=== PATIENT | female | born 1955 | race Caucasian/White ===

== ENCOUNTER 2020-09-11 20:50 | Emergency (ER) | payer MEDICARE, BC, SELFPAY ==
[2020-09-11 21:00] VITALS: BP 151/83; PULSE 97; RESP 18; TEMP 37.1; O2SAT 90; BMI 28.8
--- NOTE | 2020-09-11 21:17 | XRR_ITS ---
PROCEDURE INFORMATION: Exam: XR Chest, 1 View Exam date and time: 09/11/2020 10:34 PM Age: 65 years old Clinical indication: Cough and shortness of breath; Additional info: Short of breath, covid possible TECHNIQUE: Imaging protocol: XR of the chest Views: 1 view. COMPARISON: No relevant prior studies available. FINDINGS: Lungs: Mild patchy airspace opacities (atelectasis and/or consolidation) at bilateral lung bases, more prominent on the left. Mild pulmonary edema. Pleural space: No visible pneumothorax or pleural effusion. Heart/Mediastinum: Heart size within normal limits. Bones/joints: No emergent findings identified. XR/XR chest 1V portable [id number] IMPRESSION: 1. Mild patchy airspace opacities (atelectasis and/or consolidation) at bilateral lung bases, more prominent on the left. 2. Mild pulmonary edema.
--- NOTE | 2020-09-11 21:55 | ED_ITS ---
HPI - COVID General: Chief Complaint: COVID symptoms Stated Complaint: cough/sob Time Seen by Provider: 09/11/20 21:46 Source: patient Mode of arrival: ambulatory Limitations: no limitations Triage information: Has fever, cough or shortness of breath . No known COVID + exposure last 14 days History of Present Illness: HPI Narrative: Alycia is a very nice 65-year-old female who comes in complaining of malaise, muscle aches, fatigue, cough, shortn ess of breath and other generalized flulike symptoms for the past 5 days. She states that she gets short of breath when she exerts herself. She denies any chest pain. She has had a low-grade fever up to 99.8. Patient states that she is not believed to have been exposed to Covid but it is possible. She thought this started after she was outside and got wet while going camping. She has nausea but no vomiting. She denies any diarrhea. She denies any history of lung problems. COVID 19 common symptoms: positive fever(s), chills, non-productive cough, dyspnea, fatigue, body aches and nausea; negative productive cough, headache(s), throat pain, vomiting or diarrhea COVID 19 other sytmptoms: negative chest pain or confusion COVID Results: SARS-CoV-2 Antigen (Rapid) Positive (Negative) H 09/11/20 21:34 09/11/20 Review of Systems Const: Reports: fever(s), chills, body aches, fatigue and malaise Eyes: Denies: change in vision, blurry vision, photophobia, eye discomfort, eye discharge, eye redness or yellow eyes ENMT: Denies: throat pain, odynophagia, hoarseness, swelling of lips/tongue, ear or mastoid pain, ear discharge, change in hearing or nasal discharge Card: Denies: chest pain, palpitations, irregular heart rhythm, edema, light headedness, syncope, pre-syncope, dyspnea on exertion or orthopnea Resp: Reports: dyspnea and non-productive cough; Denies: productive cough, wheezing, hemoptysis or chest congestion GI: Reports: nausea; Denies: abdominal pain, vomiting, hematemesis, coffee ground emesis, heartburn, diarrhea, constipation, GI cramping, hematochezia or melena : Denies: flank pain, dysuria, urinary frequency, urinary urgency or hematuria Musc: Denies: neck pain, back pain, extremity pain, extremity swelling, joint pain, joint swelling, joint redness, joint warmth or joint stiffness Skin/Breast: Denies: rash, pruritus, erythema, skin pain or skin tenderness Neuro: Denies: headache(s), numbness in extremities, weakness in extremities, sensory changes, lack of coordination, difficulty walking, dizziness, vertigo, confusion, Slurred speech present or seizure-like activity Joon/Lymph: Denies: easy bruising, easy bleeding, petechiae, purpura or enlarged lymph nodes All/Imm: Denies: urticaria, throat swelling, tongue swelling, facial swelling or acute wheezing PFSH ED PFSH: Medical History DM type 2 (diabetes mellitus, type 2) Hypertension Physical Exam Const: COMMON NORMALS: no acute distress, patient oriented x3, no limitations and alert GENERAL APPEARANCE: cooperative HENMT: COMMON NORMALS: normocephalic, atraumatic, external ears normal, EAC's normal and Normal external nose present HEAD & SCALP: normal to inspection, normocephalic and atraumatic FACE & SINUS: normal facial exam and face symmetric NOSE: Normal external nose present and Normal nares present EXTERNAL EAR: Yes external ears normal EXTERNAL AUDITORY CANAL: EAC's normal MOUTH: Normal oral and palatal mucosa present, lip normal and tongue normal Eye: COMMON NORMALS: Equal, round and reactive pupils present and conjunctivae normal GENERAL EYE: appearance normal, both eyes and all related structures ALIGNMENT: Yes alignment normal PERIORBITAL: periorbital findings normal EYELID: eyelids normal CONJUNCTIVA: Yes conjunctivae normal SCLERA: sclerae normal PUPIL: Yes Equal, round and reactive pupils present Neck/C-Spine: COMMON NORMALS: full ROM, no lymphadenopathy, supple, no meningeal signs and no JVD GENERAL: Yes normal visual inspection and Yes trachea midline Chest: COMMONS NORMALS: normal inspection of the chest and normal palpation of entire chest wall Resp: COMMON NORMALS: normal respiratory effort, No retractions, No use of accessory muscles and clear to auscultation bilaterally EFFORT & INSPECTION: Yes able to speak in complete sentences and Yes symmetric chest movement AUSCULTATION: clear to auscultation bilaterally, no crackles, no rales, no rhonchi and wheezes Cardio: COMMON NORMALS: no JVD, regular rate, regular rhythm, S1 normal heart sound present and S2 normal heart sound present RATE: regular rate RHYTHM: regular rhythm HEART SOUNDS: S1 normal heart sound present, S2 normal heart sound present, no click, no gallops, no murmurs and no rubs GI: COMMON NORMALS: Soft to palpation and No hepatosplenomegaly present PALPATION: Yes Soft to palpation, No Tenderness to palpation present (GI), No Guarding due to palpation present (GI), No Rigid due to palpation, Yes No hepatosplenomegaly present, No Hernia present, No Palpable mass present and No Pulsatile mass present : COMMON NORMALS: Yes no CVA tenderness BLADDER/KIDNEY EXAM: Yes no CVA tenderness EXTERNAL FEMALE EXAM: No Hernia present Back/Pelvis: COMMON NORMALS: no CVA tenderness, thoracic and lumbar spine normal to inspection, no thoracic nor lumbar tenderness and thoraco-lumbar ROM normal Extremity: COMMON NORMALS: normal to inspection, full ROM, capillary refill normal, no joint enlargement, no clubbing, cyanosis or edema and no calf tenderness Neuro: COMMON NORMALS: patient oriented x3, CN's II-XII intact bilaterally, moves all extremities, no focal motor deficits and no sensory deficits noted SENSORIUM/ORIENTATION: Yes alert MENINGEAL SIGNS: Yes no meningeal signs SPEECH: speech normal Psych: COMMON NORMALS: mental status grossly normal, Normal thought process present, cooperative, normal affect, speech normal and activity/motor behavior normal SPEECH: Yes normal speech THOUGHT PROCESS: Normal thought process present Skin: COMMON NORMALS: no rashes or lesions noted, turgor normal, no jaundice, no petechiae and no mottling GENERAL SKIN EXAM: no rashes or lesions noted and turgor normal Course Vital Signs: Vital signs: Vital Signs Temperature 98.7 F 09/11/20 21:00 Pulse Rate 72 09/12/20 03:00 Respiratory Rate 17 09/12/20 03:00 Blood Pressure 145/80 09/12/20 03:00 Pulse Oximetry 93 09/12/20 03:18 MDM - COVID MDM Narrative Medical decision making narrative: Alycia is a nice 65-year-old female who comes in with Covid symptoms. She is Covid positive. She is only slightly hypoxic occasionally dropping down to a pulse ox of 89% on room air. I offered her admission with steroids and rib Dems of year but she declines. She wants to go home. I will arrange for her to have outpatient oxygen before going home. She understands and knows that she can return if her symptoms change or worsen but at this time she states she is feeling good and would like to be discharged. Lab Data Attestation: I reviewed the patient's lab results. Result diagrams: 09/11/20 21:34 09/11/20 21:34 Labs: Lab Results 09/11/20 09/11/20 09/11/20 Range/Units 21:34 21:34 21:34 WBC 4.7 (4.0-10.0) 10^3/uL RBC 4.06 L (4.1-5.3) 10^6/uL Hgb 12.3 (11.5-15.3) g/dL Hct 39.0 (37.0-47.0) % MCV 96.1 (81-99) fL MCH 30.3 (28.0-34.0) pg MCHC 31.5 (30.0-36.0) g/dL RDW 12.4 (12.1-15.1) % Plt Count 187 (130-400) 10^3/cmm MPV 11.0 H (7.4-10.4) fL Neut % (Auto) 68.3 % Lymph % (Auto) 24.9 % [place] % (Auto) 5.3 % Eos % (Auto) 0.9 % Baso % (Auto) 0.2 % Neut # (Auto) 3.20 (1.8-7.7) 10^3/uL Lymph # (Auto) 1.2 (0.8-4.8) 10^3/uL [place] # (Auto) 0.3 (0.2-0.9) 10^3/uL Eos # (Auto) 0.0 (0.0-0.8) 10^3/uL Baso # (Auto) 0.0 (0.0-0.1) 10^3/uL Nucleated RBC % (auto) 0 % Nucleated RBCs # 0.0 /100WBC PT (12.1-14.9) SECONDS INR (0.8-1.2) D-Dimer (0-0.59) ug/mIFEU Specimen Type Sample Site ABG pH (7.35-7.45) ABG pCO2 (35-45) mmHg ABG pO2 (80.0-100.0) mmHg ABG HCO3 (22-26) mmol/L ABG Base Excess (-2.0-2.0) mmol/L Carlos Manuel Test Hematocrit (37-47) % O2 Delivery Device O2 Liters/Min % Production Staff Worker ID Sodium 139 (136-145) mmol/L Potassium 4.1 (3.5-5.1) mmol/L Chloride 101 (98-107) mmol/L Carbon Dioxide 28 (22-29) mmol/L Anion Gap 14.1 (5-19) BUN 13 (8-23) mg/dL Creatinine 0.8 (0.5-0.9) mg/dL GFR Calculation 72.0 L (90-130) mL/min Glucose 139 H (65-115) mg/dL Calculated Osmolality 290 (285-295) mOsm/kg Lactic Acid (0.5-2.2) mmol/L Calcium 9.0 (8.5-10.5) mg/dL Magnesium 2.3 (1.7-2.3) mg/dL Ferritin 982 H (15-150) ng/mL Total Bilirubin 0.3 (0.15-1.2) mg/dL AST 32 (0-32) U/L ALT 54 H (0-33) U/L Alkaline Phosphatase 68 (35-105) IU/L C-Reactive Protein 29.2 H (0.0-4.9) mg/L Total Protein 7.7 (6.6-8.7) g/dL Albumin 4.0 (3.5-5.2) g/dL Globulin 3.7 (1.3-4.6) g/dL Urine Color (Yellow) Urine Appearance (CLEAR) Urine pH (5-7) Ur Specific Spencer (1.005-1.030) Urine Protein (Negative) Urine Glucose (UA) (Normal) Urine Ketones (Negative) Urine Blood (Negative) Urine Nitrate (Negative) Urine Bilirubin (Negative) Prot Sulfosalicylic Acd (Negative) Urine Urobilinogen (Negative) mg/dL Ur Leukocyte Esterase (Negative) Influenza Type A Ag (Negative) Influenza Type B Ag (Negative) SARS-CoV-2 Ag (Rapid) Positive H (Negative) 09/11/20 09/11/20 09/11/20 Range/Units 22:49 22:49 22:49 WBC (4.0-10.0) 10^3/uL RBC (4.1-5.3) 10^6/uL Hgb (11.5-15.3) g/dL Hct (37.0-47.0) % MCV (81-99) fL MCH (28.0-34.0) pg MCHC (30.0-36.0) g/dL RDW (12.1-15.1) % Plt Count (130-400) 10^3/cmm MPV (7.4-10.4) fL Neut % (Auto) % Lymph % (Auto) % [place] % (Auto) % Eos % (Auto) % Baso % (Auto) % Neut # (Auto) (1.8-7.7) 10^3/uL Lymph # (Auto) (0.8-4.8) 10^3/uL [place] # (Auto) (0.2-0.9) 10^3/uL Eos # (Auto) (0.0-0.8) 10^3/uL Baso # (Auto) (0.0-0.1) 10^3/uL Nucleated RBC % (auto) % Nucleated RBCs # /100WBC PT 12.90 (12.1-14.9) SECONDS INR 0.94 (0.8-1.2) D-Dimer 0.74 H (0-0.59) ug/mIFEU Specimen Type Sample Site ABG pH (7.35-7.45) ABG pCO2 (35-45) mmHg ABG pO2 (80.0-100.0) mmHg ABG HCO3 (22-26) mmol/L ABG Base Excess (-2.0-2.0) mmol/L Carlos Manuel Test Hematocrit (37-47) % O2 Delivery Device O2 Liters/Min % Production Staff Worker ID Sodium (136-145) mmol/L Potassium (3.5-5.1) mmol/L Chloride (98-107) mmol/L Carbon Dioxide (22-29) mmol/L Anion Gap (5-19) BUN (8-23) mg/dL Creatinine (0.5-0.9) mg/dL GFR Calculation (90-130) mL/min Glucose (65-115) mg/dL Calculated Osmolality (285-295) mOsm/kg Lactic Acid 0.7 (0.5-2.2) mmol/L Calcium (8.5-10.5) mg/dL Magnesium (1.7-2.3) mg/dL Ferritin (15-150) ng/mL Total Bilirubin (0.15-1.2) mg/dL AST (0-32) U/L ALT (0-33) U/L Alkaline Phosphatase (35-105) IU/L C-Reactive Protein (0.0-4.9) mg/L Total Protein (6.6-8.7) g/dL Albumin (3.5-5.2) g/dL Globulin (1.3-4.6) g/dL Urine Color (Yellow) Urine Appearance (CLEAR) Urine pH (5-7) Ur Specific Spencer (1.005-1.030) Urine Protein (Negative) Urine Glucose (UA) (Normal) Urine Ketones (Negative) Urine Blood (Negative) Urine Nitrate (Negative) Urine Bilirubin (Negative) Prot Sulfosalicylic Acd (Negative) Urine Urobilinogen (Negative) mg/dL Ur Leukocyte Esterase (Negative) Influenza Type A Ag Negative (Negative) Influenza Type B Ag Negative (Negative) SARS-CoV-2 Ag (Rapid) (Negative) 09/11/20 09/12/20 Range/Units 23:21 00:01 WBC (4.0-10.0) 10^3/uL RBC (4.1-5.3) 10^6/uL Hgb (11.5-15.3) g/dL Hct (37.0-47.0) % MCV (81-99) fL MCH (28.0-34.0) pg MCHC (30.0-36.0) g/dL RDW (12.1-15.1) % Plt Count (130-400) 10^3/cmm MPV (7.4-10.4) fL Neut % (Auto) % Lymph % (Auto) % [place] % (Auto) % Eos % (Auto) % Baso % (Auto) % Neut # (Auto) (1.8-7.7) 10^3/uL Lymph # (Auto) (0.8-4.8) 10^3/uL [place] # (Auto) (0.2-0.9) 10^3/uL Eos # (Auto) (0.0-0.8) 10^3/uL Baso # (Auto) (0.0-0.1) 10^3/uL Nucleated RBC % (auto) % Nucleated RBCs # /100WBC PT (12.1-14.9) SECONDS INR (0.8-1.2) D-Dimer (0-0.59) ug/mIFEU Specimen Type Arterial Sample Site Radial, right ABG pH 7.41 (7.35-7.45) ABG pCO2 40.0 (35-45) mmHg ABG pO2 81.4 (80.0-100.0) mmHg ABG HCO3 25.2 (22-26) mmol/L ABG Base Excess 0.5 (-2.0-2.0) mmol/L Carlos Manuel Test Pos Hematocrit 34.4 L (37-47) % O2 Delivery Device Nc O2 Liters/Min 2.0 % Production Staff Worker ID Jlg Sodium (136-145) mmol/L Potassium (3.5-5.1) mmol/L Chloride (98-107) mmol/L Carbon Dioxide (22-29) mmol/L Anion Gap (5-19) BUN (8-23) mg/dL Creatinine (0.5-0.9) mg/dL GFR Calculation (90-130) mL/min Glucose (65-115) mg/dL Calculated Osmolality (285-295) mOsm/kg Lactic Acid (0.5-2.2) mmol/L Calcium (8.5-10.5) mg/dL Magnesium (1.7-2.3) mg/dL Ferritin (15-150) ng/mL Total Bilirubin (0.15-1.2) mg/dL AST (0-32) U/L ALT (0-33) U/L Alkaline Phosphatase (35-105) IU/L C-Reactive Protein (0.0-4.9) mg/L Total Protein (6.6-8.7) g/dL Albumin (3.5-5.2) g/dL Globulin (1.3-4.6) g/dL Urine Color Yellow (Yellow) Urine Appearance Clear (CLEAR) Urine pH 8 H (5-7) Ur Specific Spencer 1.010 (1.005-1.030) Urine Protein Neg (Negative) Urine Glucose (UA) Norm (Normal) Urine Ketones Negative (Negative) Urine Blood Neg (Negative) Urine Nitrate Negative (Negative) Urine Bilirubin Neg (Negative) Prot Sulfosalicylic Acd Negative (Negative) Urine Urobilinogen Norm (Negative) mg/dL Ur Leukocyte Esterase Negative (Negative) Influenza Type A Ag (Negative) Influenza Type B Ag (Negative) SARS-CoV-2 Ag (Rapid) (Negative) COVID Results: SARS-CoV-2 Antigen (Rapid) Positive (Negative) H 09/11/20 21:34 09/11/20 Imaging Data CXR: Attestation: I personally reviewed and interpreted this imaging study as follows: My impression: Mild bilateral interstitial infiltrates CT Chest: Radiologist's impression: [address] [address] [address] Scan Report Signed Patient: Kamila Mak Unit #: [id number] : 1955 Age/Sex: 65 / F ADM Date: 09/11/20 Loc: ER Room/Bed: Attending Dr: Ordering Provider/Ordering MD: Kelsey Rivas DO Date of Service: 09/11/20 Procedure(s): CT angio chest PE [facility] [id number] Accession Number(s): [id number] Report Number: [id number] PROCEDURE INFORMATION: Exam: CT Angiography Chest With Contrast Exam date and time: 09/11/2020 12:16 AM Age: 65 years old Clinical indication: Abnormal findings; Abnormal diagnostic tests; Elevated d-dimer; Additional info: Dyspnea, positive d-dimer TECHNIQUE: Imaging protocol: Computed tomographic angiography of the chest with intravenous contrast. 3D rendering (Not supervised by radiologist): MIP and/or 3D reconstructed images were created by the technologist. Radiation optimization: All CT scans at this facility use at least one of these dose optimization techniques: automated exposure control; mA and/or kV adjustment per patient size (includes targeted exams where dose is matched to clinical indication); or iterative reconstruction. Contrast material: OMNI 350; Contrast volume: 95 ml; Contrast route: INTRAVENOUS (IV); COMPARISON: CR XR chest 1V portable [id number] 09/11/2020 10:29 PM RADIATION DOSE METRICS: Total DLP (mGy-cm): 686.98 FINDINGS: Pulmonary arteries: No pulmonary emboli identified. Aorta: Mild atherosclerotic calcification of the thoracic aorta. No thoracic aortic aneurysm identified. Lungs: Moderate patchy groundglass opacities scattered throughout both lungs. Differential diagnosis includes pulmonary edema, pulmonary hemorrhage, hypersensitivity pneumonitis, and multifocal pneumonia (especially opportunistic). Pleural space: No pneumothorax or pleural effusion. Heart: Heart size within normal limits. Lymph nodes: Enlarged right paratracheal lymph node measuring 1.2 cm short axis on series 2, image 153. Bones/joints: Mild degenerative changes of the thoracic spine. Soft tissues: Unremarkable. Other findings: Images of the upper abdomen were reviewed and are unremarkable. CT/CT angio chest PE protcl [id number] IMPRESSION: 1. No pulmonary emboli identified. 2. Moderate patchy groundglass opacities scattered throughout both lungs. Differential diagnosis includes pulmonary edema, pulmonary hemorrhage, hypersensitivity pneumonitis, and multifocal pneumonia (especially opportunistic). Radiation Dose CTDIVOL = (mGy): DLP = 686.98 (mGy-cm) Dictated By: Bob Trejo MD Signed By: Bob Trejo MD Signed Date/Time: 09/12/20246 DD/ 5 Discharge Plan Discharge Patient Disposition: Home Clinical Impression: Pneumonia due to COVID-19 virus Condition: Stable Prescriptions: New Decadron 6 mg tablet 6 mg PO DAILY Qty: 10 RF: 0 Tessalon Perles 100 mg capsule 200 mg PO TID PRN (Reason: cough) Qty: 60 RF: 0 Discharge Orders: Discharge Order (Routine); Ordered 09/12/20 Ordered By: Kelsey Rivas Referrals: Aubrie Horta DO [Primary Care Provider] - 1-3 days Discharge Diet: Advance as tolerated Discharge Activity: Increase activity as tolerated Patient Instructions: Viral Pneumonia (ED) Activity Restrictions/Additional Instructions: Please return to the ER immediately for any of the signs or symptoms listed on your discharge instruction sheets, worsening/changing of your symptoms, you are not getting better as quickly as expected, or for ANY other cause or concerns. You have been offered admission for your symptoms but have declined. Please return to the ER if your pulse ox persistently falls below 90% despite the oxygen you have been given. Return to the ER for increased pain, difficulty breathing, vomiting, or for any other cause for concern. Follow-up with your doctor or contact the [facility] health department to determine when you can go back to work and go out of quarantine. Until this happens keep yourself at home away from others so you do not spread the infection. Coding Level of Care Code ED Director Of Category Management for Mirna Fwd Exam Comprehensive
[2020-09-11 22:02] LABS: Basophils % 0.2 %; Eosinophils % 0.9 %; Hemoglobin 12.3 g/dL (11.5-15.3); Lymphocytes # 1.2 10^3/uL (0.8-4.8); Lymphocytes % 24.9 %; Mean Corpuscular HGB Conc 31.5 g/dL (30.0-36.0); Mean Corpuscular Hemoglobin 30.3 pg (28.0-34.0); Mean Corpuscular Volume 96.1 fL (81-99); Monocytes # 0.3 10^3/uL (0.2-0.9); Monocytes % 5.3 %; Neutrophils % 68.3 %; Nucleated Red Blood Cells % 0 %; Platelet Count 187 10^3/cmm (130-400); Red Blood Count 4.06 10^6/uL (4.1-5.3); Red Cell Distribution Width 12.4 % (12.1-15.1); White Blood Count 4.7 10^3/uL (4.0-10.0)
[2020-09-11 22:07] VITALS: PULSE 83; RESP 19; O2SAT 96; O2SAT 97
[2020-09-11 22:19] LABS: SARS Covid-2 Antigen Positive (Negative)
[2020-09-11 22:30] LABS: Alanine Aminotransferase 54 U/L (0-33); Alkaline Phosphatase 68 IU/L (35-105); Anion Gap 14.1 (5-19); Aspartate Amino Transferase 32 U/L (0-32); Blood Urea Nitrogen 13 mg/dL (8-23); Carbon Dioxide 28 mmol/L (22-29); Chloride 101 mmol/L (98-107); Globulin 3.7 g/dL (1.3-4.6); Glucose 139 mg/dL (65-115); Magnesium 2.3 mg/dL (1.7-2.3); Osmolality Calculated 290 mOsm/kg (285-295); Potassium 4.1 mmol/L (3.5-5.1); Sodium 139 mmol/L (136-145); Total Bilirubin 0.3 mg/dL (0.15-1.2); Total Protein 7.7 g/dL (6.6-8.7)
[2020-09-11] MEDS: sodium chloride 0.9% 1,000 ML 999 ML IV (22:44)
[2020-09-11] MEDS: dexamethasone 4 mg/mL INJ 10 MG IVP (22:45)
[2020-09-11 23:12] LABS: INR 0.94 (0.8-1.2)
[2020-09-11 23:14] LABS: D Dimer 0.74 ug/mIFEU (0-0.59)
[2020-09-11 23:17] LABS: Lactic Sepsis W/Reflex 0.7 mmol/L (0.5-2.2)
--- NOTE | 2020-09-11 23:24 | CTR_ITS ---
PROCEDURE INFORMATION: Exam: CT Angiography Chest With Contrast Exam date and time: 09/11/2020 12:16 AM Age: 65 years old Clinical indication: Abnormal findings; Abnormal diagnostic tests; Elevated d-dimer; Additional info: Dyspnea, positive d-dimer TECHNIQUE: Imaging protocol: Computed tomographic angiography of the chest with intravenous contrast. 3D rendering (Not supervised by radiologist): MIP and/or 3D reconstructed images were created by the technologist. Radiation optimization: All CT scans at this facility use at least one of these dose optimization techniques: automated exposure control; mA and/or kV adjustment per patient size (includes targeted exams where dose is matched to clinical indication); or iterative reconstruction. Contrast material: OMNI 350; Contrast volume: 95 ml; Contrast route: INTRAVENOUS (IV); COMPARISON: CR XR chest 1V portable [id number] 09/11/2020 10:29 PM RADIATION DOSE METRICS: Total DLP (mGy-cm): 686.98 FINDINGS: Pulmonary arteries: No pulmonary emboli identified. Aorta: Mild atherosclerotic calcification of the thoracic aorta. No thoracic aortic aneurysm identified. Lungs: Moderate patchy groundglass opacities scattered throughout both lungs. Differential diagnosis includes pulmonary edema, pulmonary hemorrhage, hypersensitivity pneumonitis, and multifocal pneumonia (especially opportunistic). Pleural space: No pneumothorax or pleural effusion. Heart: Heart size within normal limits. Lymph nodes: Enlarged right paratracheal lymph node measuring 1.2 cm short axis on series 2, image 153. Bones/joints: Mild degenerative changes of the thoracic spine. Soft tissues: Unremarkable. Other findings: Images of the upper abdomen were reviewed and are unremarkable. CT/CT angio chest PE [facility] [id number] IMPRESSION: 1. No pulmonary emboli identified. 2. Moderate patchy groundglass opacities scattered throughout both lungs. Differential diagnosis includes pulmonary edema, pulmonary hemorrhage, hypersensitivity pneumonitis, and multifocal pneumonia (especially opportunistic). Radiation Dose CTDIVOL = (mGy): DLP = 686.98 (mGy-cm)
[2020-09-11 23:33] LABS: ABG PH Result 7.41 (7.35-7.45); Arterial Blood Gas Hematocrit 34.4 % (37-47); Base Excess ABG 0.5 mmol/L (-2.0-2.0); Blood Gas Allen Test Pos; Blood Gas Sample Site Radial, right; Blood Gas Sample Type Arterial; HCO3 ABG 25.2 mmol/L (22-26); Oxygen Device NC; PO2 ABG 81.4 mmHg (80.0-100.0)
[2020-09-11 23:45] LABS: Influenza A by IFA Negative (Negative); Influenza B by IFA Negative (Negative)
[2020-09-11 23:49] LABS: C Reactive Protein 29.2 mg/L (0.0-4.9); Ferritin 982 ng/mL (15-150)
[2020-09-12] VITALS: BP 147/86; PULSE 107; RESP 17; O2SAT 96
[2020-09-12 00:13] LABS: Add Urine Microscopic? NO
[2020-09-12 00:36] LABS: Urine Appearance Clear (CLEAR); Urine Color Yellow (Yellow); pH Urine 8 (5-7)
[2020-09-12 00:37] LABS: Bilirubin Urine Neg (Negative); Blood Urine Neg (Negative); Glucose Urine UA Norm (Normal); Ketones Urine Negative (Negative); Leukocyte Esterase Urine Negative (Negative); Nitrate Urine Negative (Negative); Protein Urine Neg (Negative); Sulfosalicylic Acid Urine Negative (Negative); Urobilinogen Urine Norm (Negative)
[2020-09-12 01:00] VITALS: BP 121/77; PULSE 83; RESP 16; O2SAT 93
[2020-09-12] MEDS: sodium chloride 0.9% 1,000 ML 999 ML IV (01:02)
[2020-09-12] MEDS: iohexol 350 mg/mL 100 mL Btl IV (01:54)
[2020-09-12 02:30] VITALS: BP 118/78; PULSE 97; RESP 16; O2SAT 93
[2020-09-12 03:00] VITALS: BP 145/80; PULSE 72; RESP 17; O2SAT 92
[2020-09-12 03:18] VITALS: O2SAT 93
[2020-09-12 04:43] VITALS: BP 133/78; PULSE 72; RESP 17; TEMP 36.9; O2SAT 95
== END 2020-09-12 04:43 | disposition home or self-care (01) ==
PROVIDERS: Nurse Practitioner Family; Emergency Provider Emergency Medicine; PCP Internal Medicine
DX: U07.1 COVID-19 (principal); J12.89 Other viral pneumonia; E11.9 Type 2 diabetes mellitus without complications; I10 Essential (primary) hypertension; R06.02 Shortness of breath
CPT/HCPCS: 12345; 36600; 71045; 71275; 80053; 81003; 82728; 82803; 83605; 83735; 85025; 85378; 85610; 86140; 87040; 87426; 87804; 96361; 96374; 96375; 99284; J1100; J7030; Q9967

== ENCOUNTER → 2023-03-16 14:02 | Outpatient (BNVA) | payer MEDICARE, OTHER, SELFPAY | PROVIDERS: PCP Internal Medicine; Visit Provider Student in an Organized Health Care Education/Training Program | DX: M17.11 Unilateral primary osteoarthritis, right knee (principal) | CPT/HCPCS: 73560; 73565; 99204 ==

== ENCOUNTER 2023-04-21 15:50 | Emergency (ER) | payer MEDICARE, OTHER, SELFPAY ==
[2023-04-21 15:58] VITALS: BP 181/79; PULSE 92; RESP 14; TEMP 36.6; O2SAT 97
--- NOTE | 2023-04-21 17:23 | CTR_ITS ---
PROCEDURE INFORMATION: Exam: CT Head Without Contrast Exam date and time: 04/21/2023 5:56 PM Age: 67 years old Clinical indication: Visual disturbance; Patient HX: Spider bite on left arm x4 days, blurred vision x4 days; Additional info: Change in vision TECHNIQUE: Imaging protocol: Computed tomography of the head without contrast. Sagittal and coronal reformatted images were created and reviewed. Radiation optimization: All CT scans at this facility use at least one of these dose optimization techniques: automated exposure control; mA and/or kV adjustment per patient size (includes targeted exams where dose is matched to clinical indication); or iterative reconstruction. REPORTING DATA: Count of CT and Cardiac NM exams in prior 12 months: This patient has received 0 known CTs and 0 known cardiac nuclear medicine studies in the 12 months prior to the current study. COMPARISON: No relevant prior studies available. RADIATION DOSE METRICS: Total DLP (mGy-cm): 1033.76 FINDINGS: Brain: Bilateral basal ganglia calcifications. No evidence for Chiari 1 malformation. Cerebral ventricles: No ventriculomegaly. Paranasal sinuses: Visualized paranasal sinuses are clear. Mastoid air cells: Visualized mastoid air cells are clear. Orbital cavities: No acute abnormality in the visualized orbits. No acute abnormality in the visualized orbits. Nasal cavity: Mild left nasal septal deviation. Bones/joints: No acute fracture. Soft tissues: No acute abnormality of the extracranial soft tissues. Vasculature: Atherosclerotic changes in the visualized arteries. Mild atherosclerotic changes in the visualized arteries. CT/CT head wo con* [id number] IMPRESSION: 1. No acute abnormality of the brain. 2. Incidental/nonacute findings are listed in the report.
[2023-04-21 17:31] VITALS: BP 157/96; O2SAT 95
--- NOTE | 2023-04-21 19:05 | ED_ITS ---
HPI - Eye Problem General: Chief complaint: Eye Problems Stated complaint: sent by barbara dowd/[facility] Time Seen by Provider: 04/21/23 17:11 History of Present Illness: 67-year-old female presents emergency room for complaints of blurriness to the left eye within the past 3 days. Patient initially presented to the local urgent care for left forearm rash and after complained to them of the blurriness she was told to return to the emergency room for further evaluation and treatment. She denies any pain, no headache, no numbness or tingling. No recent fall or head injury. GEN endorses wearing eyeglasses. Associated symptoms: Denies headache(s), nausea or vomiting Review of Systems Eyes: Reports: blurry vision; Denies: blind spots, photophobia, eye discomfort, eye discharge, eye redness, yellow eyes, dry eyes, increased production of tears, floaters, seeing flashes or decreased night vision Resp: Denies: dyspnea, productive cough or wheezing GI: Denies: abdominal pain, nausea, vomiting, hematemesis, coffee ground emesis or dysphagia Neuro: Denies: headache(s), numbness in extremities, weakness in extremities, sensory changes, lack of coordination, difficulty walking, frequent falls, dizziness or behavioral changes Psych: Denies: anxiety, depression, mood swings, panic attacks, sleeping less, sleeping more, hopelessness, loss of interest, change in appetite, irritability or paranoia [facility] ED PFSH: Medical History (Updated 04/21/23 @ 19:23 by Raúl Bashir MD) DM type 2 (diabetes mellitus, type 2) Hypertension Physical Exam Narrative: EXAM NARRATIVE: Patient is awake alert no acute distress. Const: COMMON NORMALS: patient oriented x3 HENMT: OTHER: No religion tenderness upon palpation no rash or lesion. Eye: GENERAL EYE: appearance normal, both eyes and all related structures, normal light reflex, no enophthalmos, no exophthalmos and no proptosis VISUAL ACUITY: No near vision loss, No distant vision loss and No complete vision loss VISUAL SARMIENTO: No peripheral vision loss, No central vision loss and No left visual field cut PERIORBITAL: periorbital findings normal DIRECT OPHTHALMOSCOPY: Yes normal light reflex Neck/C-Spine: COMMON NORMALS: full ROM, no lymphadenopathy and no JVD Cardio: COMMON NORMALS: no JVD, regular rate and S1 normal heart sound present RATE: regular rate HEART SOUNDS: S1 normal heart sound present Neuro: COMMON NORMALS: patient oriented x3, CN's II-XII intact bilaterally, moves all extremities, no focal motor deficits and no sensory deficits noted Course Consultations: Consultation #1: Discussed patient with the ophthalmology on-call Dr. Lucas. He recommended outpatient follow-up on Monday. Patient was given referral to Dr. Castañeda. Patient was told to return to the emergency room if symptoms persist or worsen. Vital Signs: Vital signs: Vital Signs Temperature 97.9 F 04/21/23 15:58 Pulse Rate 82 04/21/23 19:12 Respiratory Rate 14 04/21/23 19:12 Blood Pressure 167/101 04/21/23 19:12 Pulse Oximetry 97 04/21/23 19:12 Oxygen Delivery Me thod Room Air 04/21/23 17:31 MDM - Eye Problem Medical Decision Making Patient appropriate emergency room had a CT scan which was reviewed by radiologist. No acute finding on CT. Patient main stable emergency room in acute distress. Discussed patient with Dr. Lucas and recommended patient follow-up on Monday. Differential Diagnosis Likely corneal abrasion, conjunctivitis, acute iritis, hyphema, periorbital cellulitis, subconjunctival hemorrhage, glaucoma, corneal ulcer and ruptured globe Medical Records Marisol CT findings with patient and daughter. Will consult ophthalmology on-call for further recommendation. Lab Data Radiology Impressions Head CT 04/21/23 17:23 IMPRESSION: 1. No acute abnormality of the brain. 2. Incidental/nonacute findings are listed in the report. Discharge Plan Discharge Patient Disposition: Home Clinical Impression: Blurred vision, left eye Condition: Stable Prescriptions: No Action metformin 500 mg tablet 500 mg PO BID losartan-hydrochlorothiazide 50-12.5 mg tablet 1 tab PO DAILY lovastatin 10 mg tablet 10 mg PO DAILY aspirin [Adult Low Dose Aspirin] 81 mg tablet,delayed release (DR/EC) 81 mg PO DAILY ascorbate calcium (vitamin C) 500 mg tablet 500 mg PO DAILY zinc sulfate 25 mg zinc (110 mg) tablet 25 mg PO DAILY cholecalciferol (vitamin D3) 25 mcg (1,000 unit) capsule 25 mcg PO DAILY glucosamine HCl 500 mg tablet 500 mg PO DAILY Rx Instructions: administer with a meal Discharge Orders: Discharge ED (Routine); Ordered 04/21/23 Ordered By: Raúl Bashir Referrals: Sofie Bolton FNP [Primary Care Provider] - Cresencio Castañeda [Physician] - 1-3 days Discharge Diet: As Directed Discharge Activity: Resume usual activity Patient Instructions: Opioid Safety, Pain Management Coding Level of Care Code ED Residential Ro[facility]er for Mirna Davidson
--- NOTE | 2023-04-21 19:11 | PC.NURSE ---
Report from JOE Sheets. Pt sitting up in bed. Updated on plan of care. No further needs at this time.
[2023-04-21 19:12] VITALS: BP 167/101; PULSE 82; RESP 14; O2SAT 97
[2023-04-21 20:10] VITALS: BP 179/99; PULSE 84; RESP 14; O2SAT 96
== END 2023-04-21 20:13 | disposition home or self-care (01) ==
PROVIDERS: Emergency Provider Family Medicine; PCP Nurse Practitioner Family
DX: H53.8 Other visual disturbances (principal); Z79.82 Long term (current) use of aspirin; Z79.84 Long term (current) use of oral hypoglycemic drugs; E11.9 Type 2 diabetes mellitus without complications; I10 Essential (primary) hypertension
CPT/HCPCS: 70450; 99284

== ENCOUNTER → 2023-05-22 08:39 | Outpatient (BNVA) | payer MEDICARE, OTHER, SELFPAY | PROVIDERS: PCP Nurse Practitioner Family; Visit Provider Student in an Organized Health Care Education/Training Program | DX: M17.11 Unilateral primary osteoarthritis, right knee (principal) | CPT/HCPCS: 99214 ==

== ENCOUNTER 2023-06-27 13:34 | Outpatient (CLI) | payer MEDICARE, OTHER, SELFPAY ==
--- NOTE | 2023-06-27 14:00 | CT_ITS ---
WS: [id number] CT RIGHT KNEE, NONCONTRAST TECHNIQUE: Noncontrast CT of the RIGHT knee to include the RIGHT hip and ankle. ZEHRA CLINICAL INFORMATION: DKD RIGHT KNEE COMPARISON: None. DLP: 978.[address] scans at [facility] use at least one of these dose optimization techniques: automated e xposure control; mA and/or kV adjustment per patient size (includes targeted exams where dose is matc hed to clinical indication); or iterative reconstruction. FINDINGS: Advanced degenerative arthritis RIGHT knee with hypertrophic changes along the joint line. Narrowing of the medial and lateral joint compartments and patellofemoral articulation. Hypertrophic patella. O steopenia. Small suprapatellar effusion. Sigmoid diverticulosis. Prior postoperative changes plate an d screw fixation medial malleolus and lateral fibula. Advanced degenerative arthritis at the RIGHT gr eater than LEFT ankle. IMPRESSION: Images obtained for preoperative purposes.
== END 2023-06-27 13:35 | disposition home or self-care (01) ==
PROVIDERS: PCP Nurse Practitioner Family; Visit Provider Student in an Organized Health Care Education/Training Program
DX: M17.11 Unilateral primary osteoarthritis, right knee (principal)
CPT/HCPCS: 73700

== ENCOUNTER → 2023-07-11 07:41 | Outpatient (BNVA) | payer MEDICARE, OTHER, SELFPAY | PROVIDERS: PCP Nurse Practitioner Family; Visit Provider Student in an Organized Health Care Education/Training Program | DX: M17.11 Unilateral primary osteoarthritis, right knee (principal); Z01.818 Encounter for other preprocedural examination; E11.9 Type 2 diabetes mellitus without complications; Z79.84 Long term (current) use of oral hypoglycemic drugs | CPT/HCPCS: 36415; 80053; 81001; 83036; 85025; 99213 ==

== ENCOUNTER → 2023-07-13 09:07 | Outpatient (BNVA) | payer MEDICARE, OTHER, SELFPAY | PROVIDERS: PCP Nurse Practitioner Family; Visit Provider Clinical Nurse Specialist Adult Health | DX: M17.11 Unilateral primary osteoarthritis, right knee (principal) | CPT/HCPCS: 81000 ==

== ENCOUNTER 2023-07-19 10:58 | Observation (INO) | payer MEDICARE, OTHER, SELFPAY ==
[2023-07-18 10:14] VITALS: BMI 29.9
[2023-07-19] VITALS (17 sets, daily range): BP systolic 127–161; BP diastolic 64–90; PULSE 74–100; RESP 12–17; TEMP 36.1–36.6; O2SAT 91–100
[2023-07-19] MEDS: sodium chloride 0.9% 1,000 ML 30 ML IV (07:07)
--- NOTE | 2023-07-19 07:11 | W.PM.OPSUD ---
Surgery/Procedure H&P Update DATE OF PROCEDURE: July 19, 2023 DATE H&P PERFORMED: 07/11/23 H&P UPDATE INFORMATION: I have reviewed H&P completed within last 30 days, I have examined patient prior to procedure, No changes to prior documentation and H&P is in [facility] EMR on date indicated PREOP DIAGNOSIS: right knee degenerative joint disease PRIMARY INDICATION FOR PROCEDURE: Right knee degenerative joint disease PLANNED PROCEDURE: Operation Date: 07/19/23 07:55 Proposed Procedures p RIGHT TOTAL KNEE ARTHROPLASTY WITH ZEHRA 46857, M17.11,M25.569(Right) - Azael Pereira DO
[2023-07-19] MEDS: acetaminophen 1,000 MG/100 ML PIGGYBACK 400 MG IV ×2 (07:13→15:24)
[2023-07-19] MEDS: ketorolac 30 mg/mL INJ IVP (07:13)
[2023-07-19] MEDS: HYDROmorphone 1 mg/mL INJ 1 mL 0.5 MG IVP (07:45)
[2023-07-19] MEDS: ceFAZolin 2,000 MG in sodium chloride 0.9% (plus) 50 ML 100 MG IV ×2 (08:21→16:25)
[2023-07-19] MEDS: EPINEPHrine 1 mg/mL INJ XX (09:19)
[2023-07-19] MEDS: ROPivacaine 0.2% Premix 100 mL 200 MG INTRA-ARTI (09:19)
[2023-07-19] MEDS: tranexamic acid 1,000 mg/10mL SDV 1000 MG XX (09:19)
[2023-07-19] MEDS: ketorolac 30 mg/mL INJ XX (09:19)
--- NOTE | 2023-07-19 09:53 | P.ANESASSM_ITS ---
Pre-Anesthetic Assessment Height/Weight: Height 1.6 m Weight 76.657 kg Temp Pulse Resp BP Pulse Ox O2 Del Method 97.2 F L 76 17 161/90 97 Room Air 07/19/23 06:47 07/19/23 06:47 07/19/23 06:47 07/19/23 06:47 07/19/23 06:47 07/19/23 06:48 Preop Diagnosis: right knee degenerative joint disease Operation Date: 07/19/23 07:55 Proposed Procedures p RIGHT TOTAL KNEE ARTHROPLASTY WITH ZEHRA 19965, M17.11,M25.569(Right) - Azael Pereira DO Familial anesthetic complications: none Was Beta James taken within 24 hours: N/A Was Clonidine taken within 24 hours: N/A Last intake: Intake Last Liquid Date 07/18/23 Last Liquid Time 20:00 Last Solid Date 07/18/23 Last Solid Time 20:00 Social No alcohol and No tobacco Exam alert, oriented x 3, clear to auscultation bilaterally and regular rate & rhythm Airway Submandibular: within normal limits Cervical ROM: within normal limits Mallampati: Class II Dentition: full CV/HEM Hypertension Metabolic Diabetes Mellitus and Hyperlipidemia [facility] Osteoarthritis/DJD Anesthetic Plan ASA status: 3 Anesthesia: Regional (specify below) (SAB with right adductor blk) Medications/Allergies Home Medications Medication Instructions Recorded Confirmed Last Taken Type ascorbate calcium (vitamin C) 500 500 mg PO DAILY 03/16/23 07/18/23 07/12/23 History mg tablet aspirin 81 mg tablet,delayed 81 mg PO DAILY 03/16/23 07/18/23 07/14/23 History release (Adult Low Dose Aspirin) cholecalciferol (vitamin D3) 25 25 mcg PO DAILY 03/16/23 07/18/23 07/12/23 History mcg (1,000 unit) capsule glucosamine HCl 500 mg tablet 500 mg PO DAILY 03/16/23 07/18/23 07/12/23 History losartan 50 mg-hydrochlorothiazide 1 tab PO DAILY 03/16/23 07/18/23 07/18/23 History 12.5 mg tablet lovastatin 10 mg tablet 10 mg PO DAILY 03/16/23 07/18/23 07/18/23 History metformin 500 mg tablet 500 mg PO BID 03/16/23 07/18/23 07/17/23 History zinc sulfate 25 mg zinc (110 mg) 25 mg PO DAILY 03/16/23 07/18/23 07/12/23 History tablet sertraline 25 mg tablet 25 mg PO DAILY 07/11/23 07/19/23 07/18/23 22:00 History Allergies Allergy/AdvReac Type Severity Reaction Status Date / Time ciprofloxacin [From Cipro] Allergy Severe ALGY-Anaphy Verified 07/19/23 06:43 laxis Current Medications Generic Name Dose Route Start Last Admin Trade Name Jeevanq PRN Reason Stop Dose Admin Hydromorphone HCl 0.5 mg 07/19/23 06:37 07/19/23 07:45 Hydromorphone 1 Mg/Ml Inj 1 Ml IVP 0.5 mg ONCE PRN Administration For preop pain/anxiety Sodium Chloride 1,000 mls @ 30 mls/hr 07/19/23 06:45 07/19/23 07:07 Sodium Chloride 0.9% IV 07/20/23 06:44 30 mls/hr .Q24H NARENDRA Administration PFSH Anesthesia Medical History DM type 2 (diabetes mellitus, type 2) Dyslipidemia Hypertension Surgical History History of ankle surgery right ankle surgery in F History of cataract surgery Family History Other CAD (coronary artery disease) Lung disease Denies family history of Clotting disorder Anesthesia complication Bleeding disorder Social History Smoking and tobacco status: never smoked Alcohol intake: never Marital status: Data Anesthesia Blood Bank 07/19/23 07:05 Blood Type A Positive Rho(D) Type Positive Antibody Screen Negative Cardiac Studies: No Data to Display Anesthesia Procedures Nerve Block Nerve Block 1: Main Anesthesia: spinal anesthesia block Time Out Performed: Yes Consent: requested by attending/covering physician, from patient, risks and benefits reviewed and patient agrees to proceed Nerve block location: adductor canal (right) Anesthesia monitors applied: pulse oximetry, EKG, BP cuff and oxygen Nerve block position: supine Anesthetic Used: ropivicaine 0.5% Amount of anesthesia used (mL): 20 Ultrasound used to: recognize landmarks Nerve Stimulator Used?: No Interscalene/Femoral BLK: 4 stimuplex 21 g needle used for position and inplane approach Injection: neg aspiration of heme Patient Tolerated Procedure: well Complications: none
[2023-07-19] MEDS: vancomycin 1,000 MG SDV 1000 MG XX (10:08)
--- NOTE | 2023-07-19 10:28 | W.PM.BPON ---
Date of Procedure: 07/19/2023 Surgeon: Azael Pereira DO Rotary Rig Engine Operator(s): Micah Pereira PA-C PA-C was necessary for assistance in this case with leg positioning retraction protection neurovascular structures as well as to help assist in cement implantation Procedure(s) performed: Right total knee arthroplasty Sky robotic assisted Findings of the procedure(s): Severe degenerative joint disease right knee tricompartmental arthritis Estimated blood loss: 25 mL Specimen(s) removed: None Post-operative diagnosis: Severe degenerative joint disease right knee
--- NOTE | 2023-07-19 10:31 | PM.OP ---
Operative Report Date of procedure: July 19, 2023 Surgeon: Azael Pereira DO Procedure: Post-op diagnosis: Same Procedure done: Right total knee arthroplasty, cemented?robotic assisted Sky Implants: Russell triathlon size 3 femur CR cemented?right Russell triathlon size?3 tibia universal baseplate cemented Hugh triathlon symmetric patella size 27 mm Russell triathlon polyethylene 11mm Surgeon: Azael Pereira DO Life Skills Teacher: Micah Pereira PA-C PA was necessary for assistance in this case for leg position as well as retraction and protection of neurovascular structures during the procedure as well as to assist with implantation of implants as well as assist with wound closure Estimated blood loss: 25 mL Tourniquet 64 minutes IV fluids: 900 mL Urine output: 200mL Complications: None Condition: stable Disposition: floor Brief History: Patient is a 68-year-old female with with chronic?right knee degenerative joint disease.? Patient has been worked up in the outpatient setting in the orthopedic office at this point time through shared decision making given his [id number] arthritis as well as failed conservative treatment, and pt would like to proceed with a?right total knee arthroplasty.? Through shared decision making elected to proceed with surgical intervention for?right total knee arthroplasty.? We talked about continued conservative treatment and surgical intervention as far as the?risk benefits complications alternatives surgical and nonsurgical treatment options.? At this point time understanding patient?risks with surgery he agrees to proceed with surgical intervention.? Once again??risk with surgery include but are not limited to make it better make it worse blood clot, heart attack, stroke, on the table, infection, injury to nerves or vessels, persistent pain, arthrofibrosis, implant failure.? Understanding these?risks patient agrees to proceed with surgical intervention consent was obtained in the office.? All questions answered. Procedure: Patient was seen and evaluated in the preoperative holding area.? Consent was?reviewed and signed with patient with plan for?right total knee arthroplasty.? All questions answered.? Correct extremity marked.? Patient seen and evaluated by the anesthesia department and once cleared for surgery was taken back to the operative suite.? Patient was placed into a supine position on the OR table.? All bony prominences were well-padded.? Patient was appropriately secured to the bed.? Patient underwent anesthesia per the anesthesia department.? Patient?received spinal anesthesia and? Gaines catheter was placed.? A nonsterile tourniquet was applied to the?right thigh.? At this point in time a final timeout performed.? Patient?received appropriate preoperative antibiotics and TXA. Next the?right lower extremity was then prepped and draped in standard orthopedic fashion. Esmarch tourniquet was used exsanguinate the?right lower extremity.? Tourniquet was insufflated to 250 mmHg. A standard anterior incision was made over midline of the knee.? Sharp scalpel excision through skin and subcutaneous tissue full-thickness skin flaps were made.? Fascia was elevated off of the extensor?retinaculum was stable with medial parapatellar arthrotomy was then made.? The performed standard sequential?releases..? Immediately on entry into the joint patient was found to have severe eburnated bone and tricompartmental arthritic changes noted.? With significant osteophyte formation.? Next the the patella was then stuffed and the knee was then flexed.?? Rudy was placed superiorly around the anterior aspect of the femur this was freed of synovium and I subsequently then placed by 2 femur pins to establish my femur arrays for the [employer]?robot.? These were then placed bicortically and? femur array was then appropriately secured with appropriate visualization.? Next attention was turned towards the tibial?rays.? These were then drilled sequentially bicortically in parallel fashion and intraincisional.? I then placed my guide as well as my tibial array on in place.? This was appropriately secured and had excellent visualization with the Sky?robot.? Next the tibial checkpoint as well as femur checkpoint were then placed.? At this point time I then subsequently established my head center as well as my medial lateral malleoli as well as my checkpoints.? Next utilizing standard Sky technology I then mapped out the appropriate points and confirmation points around the femur as well as the tibia in standard fashion.? Once this was then done I then?removed all osteophytes in preparation for dynamic testing.? All osteophytes were?removed as well as I?removed the ACL and the PCL was excised due to its significant tearing and degeneration noted.? At this point time the knee was brought into full extension and we performed our standard evaluation of our gap balancing stressing his ligaments and extension as well as flexion appropriate adjustments were made to have appropriate gap balancing in both flexion and extension.? This plan for final counts.? We get a preoperative plan evaluating our implants which was a size 3 femur and a size 3 tibia.? Next we brought in the [employer]?robot and sequentially made our femur cuts.? All excess bony cuts were then?removed.? Finally we made our tibial cut.? Once this was done a standard PCL?retractor was then placed into this position I excised the medial and lateral meniscus.? The tibial cut was then subsequently?removed all excess bony debris was?removed.? I then utilized a lamina base remover and?remove the posterior osteophytes.? At this point time sized the tibia and confirmed this was a size 3.? I utilized our blunt probe to establish?rotation of tibial implant.? Once this was done I then placed my tibia size very trial in appropriate position and then subsequently placed tibial pins to hold this into place placed a size 11 mm poly as well as a size 3 femur which was appropriately impacted in place knee was then subsequently brought into extension. Trials were then assessed, this was stable with varus valgus stress in extension as well as flexion.? The 11 mm poly and this was stable with varus valgus stress in extension as well as had symmetrical translation when brought into flexion demonstrating symmetrical gaps. I had excellent balance gaps in flexion and extension with varus and valgus stresses.? At this point I was satisfied with these implants these were then verified and opened on the back table size 3 tibia, size 3 femur,? size 11 mm polythickness.? We did confirm appropriate gap balancing and stresses as well as alignment utilizing? Sky and were satisfied with this plan.? ?At this point time with my trials in place I then towel clip the patella everted this made appropriate measurements subsequently utilizing freehand technique performed by patellar?resurfacing this was confirmed to be appropriate?resection and subsequently sized to be a 27 mm symmetric.? My drill peg guides were then clamped and appropriate position and appropriate position in the patella for appropriate tracking and parallel with the joint.? Pegs were drilled trial implant was placed and the knee was then subsequently?ranged and found to have excellent patellar tracking.? Femur pegs were then drilled.? Satisfied with our tibial placement?rotation I then utilized the keel punch and prepped the tibia.? At this point time all of our trial implants were?removed.? All checkpoints as well as guidepins and arrays were?removed and appropriate counts made.? The wound bed? was thoroughly irrigated and dried and prepped for cementation.? Cement was mixed on the back table.? Once cement was?ready this was then covered onto the tibia and the tibial baseplate was then impacted and all excess cement was?removed.? Next the polyethylene was then impacted into place on the tibial baseplate.? Next cement was placed onto the femur as well as under the femur implants and impacted in to place and all excess cement was extruded and?removed.? Knee was taken into full extension? to clear all excess cement was?removed.? Warm saline was placed over the joint.? I then towel clip patella and dried for cementation. cemented the patella into place.? This was all clamped and the cement was allowed to cure.? Thorough irrigation performed with pulse lavage.? I then placed my periarticular injection while the cement was curing.? Once cured the knee was taken through?range of motion and had excellent stability and gaps were balanced in flexion and extension.? Tourniquet was then deflated. hemostasis satisfactory with electrocautery.? Next I then subsequently closed the capsule with Ethibond suture as well as a?running strata fix suture.? Knee was then taken through?range of motion 30 times.? Next the skin was then closed in layered fashion of?running stratifix sutures of deep and subcutenous tissue and skin.? ?closed in flexion and Prineo glue was then placed over the incision this allowed to cure.? Incision was covered with Silverlon, with ABDs soft?roll and Mitchel wrap.? Patient was then awakened from anesthesia and taken to PACU in stable condition. Disposition: Patient taken to PACU in stable condition will be admitted to the floor for pain control PT/OT weight-bear as tolerated?right lower extremity dressing changes as needed, DVT prophylaxis. Pain control. Patient will?receive appropriate postoperative antibiotics. patient will be seen today by the internal medicine team for medical management.? Patient will follow up with the office in 2 weeks.? Patient understands agrees with current plan.? All questions answered.
--- NOTE | 2023-07-19 10:54 | PM.CONSULT ---
Providers/Reason For Consult Consulting Physician/Specialty*: Pawan Bishop MD, hospitalist Reason for Consult*: Medical management Requesting Physician: Dr. Pereira Attending Physician: Azael Pereira DO Primary Care Provider: YA Lamb History of Present Illness History of Present Illness Kamlia Mak is a 68 year old female with diabetes and hypertension who presented to the OR today, for ORIF right knee for DJD. Surgery was performed without complication, with minimal blood loss less than 30 cc. She is doing well in the postoperative area, and denies any complaints. She denies any history of stroke, myocardial infarction. She relates the baby aspirin she is been taking at home was started following an ankle fracture. Review of Systems General: Reports: 10 or more systems reviewed and unremarkable except in HPI and below Card: Denies: chest pain Resp: Denies: dyspnea Medications/Allergies Home Medications Medication Instructions Recorded Confirmed Last Taken Type ascorbate calcium (vitamin C) 500 500 mg PO DAILY 03/16/23 07/18/23 07/12/23 History mg tablet aspirin 81 mg tablet,delayed 81 mg PO DAILY 03/16/23 07/18/23 07/14/23 History release (Adult Low Dose Aspirin) cholecalciferol (vitamin D3) 25 25 mcg PO DAILY 03/16/23 07/18/23 07/12/23 History mcg (1,000 unit) capsule glucosamine HCl 500 mg tablet 500 mg PO DAILY 03/16/23 07/18/23 07/12/23 History losartan 50 mg-hydrochlorothiazide 1 tab PO DAILY 03/16/23 07/18/23 07/18/23 History 12.5 mg tablet lovastatin 10 mg tablet 10 mg PO DAILY 03/16/23 07/18/23 07/18/23 History metformin 500 mg tablet 500 mg PO BID 03/16/23 07/18/23 07/17/23 History zinc sulfate 25 mg zinc (110 mg) 25 mg PO DAILY 03/16/23 07/18/23 07/12/23 History tablet sertraline 25 mg tablet 25 mg PO DAILY 07/11/23 07/19/23 07/18/23 22:00 History Allergies Allergy/AdvReac Type Severity Reaction Status Date / Time ciprofloxacin [From Cipro] Allergy Severe ALGY-Anaphy Verified 07/19/23 06:43 laxis Current Medications Generic Name Dose Route Start Last Admin Trade Name Freq PRN Reason Stop Dose Admin Hydromorphone HCl 0.5 mg 07/19/23 06:37 07/19/23 07:45 Hydromorphone 1 Mg/Ml Inj 1 Ml IVP 0.5 mg ONCE PRN Administration For preop pain/anxiety Sodium Chloride 1,000 mls @ 30 mls/hr 07/19/23 06:45 07/19/23 10:28 Sodium Chloride 0.9% IV 07/20/23 06:44 Infused .Q24H NARENDRA Infusion PFSH Acute PFSH: Medical History Depression with anxiety DM type 2 (diabetes mellitus, type 2) Dyslipidemia Hypertension Surgical History History of ankle surgery right ankle surgery in [facility] History of cataract surgery Family History Other CAD (coronary artery disease) Lung disease Denies family history of Clotting disorder Anesthesia complication Bleeding disorder Social History Smoking and tobacco status: never smoked Alcohol intake: never Marital status: Vitals/I&O/Wt Last Vital Signs Temp 97.2 F L 07/19/23 06:47 Pulse 76 07/19/23 06:47 Resp 17 07/19/23 06:47 BP 161/90 07/19/23 06:47 Pulse Ox 97 07/19/23 06:47 O2 Del Method Room Air 07/19/23 06:48 07/18/23 07/19/23 07/19/23 22:59 06:59 14:59 Intake Total 1260 / 1260 Balance 1260 / 1260 Weight last 48 hrs Weight 76.657 kg Physical Exam Narrative: General exam no distress, conversant but somewhat dazed. HEENT: Atraumatic normocephalic. Pupils equally round. Oropharynx clear. Neck is supple, no lymphadenopathy thyromegaly Cardiovascular regular rate and rhythm without murmur Lungs clear Abdomen is soft, nontender no obvious organomegaly exam is deferred, Gaines noted Extremities no cyanosis clubbing or edema, dressing right knee. No foot drop. Skin no rash Neuro no obvious focal deficits Urinary Catheter Management: Gaines: Cath Placed During This Visit: yes Urinary Catheter Date of Insertion: 07/19/23 Urinary Catheter Time of Insertion: 08:35 Data Other data: Laboratory from July 11 reviewed. White blood cell count 8.1, hemoglobin 12.6, platelet 268. CMP is largely normal with exception of hemoglobin A1c which was also done at 6.5%. Urinalysis showed 10-15 whites and 5-10 squamous, and on repeat was negative A&P Assessment and plan (1) Right knee DJD: Patient presents status post ORIF right knee She is going to be placed on Eliquis 2.5 mg twice a day for DVT prophylaxis. She does not have an indication to take 81 mg of aspirin daily, and this will be discontinued. She reports this was started following an ankle fracture for possible DVT prophylaxis. She does not have a history of heart disease or stroke. Rehabilitation will be ordered E, BMP tomorrow to monitor for postoperative acute blood loss anemia, electrolytes following fluid administration Qualifiers: Osteoarthritis type: primary Qualified Code(s): M17.11 - Unilateral primary osteoarthritis, right knee (2) DM type 2 (diabetes mellitus, type 2): Initiate consistent carb diet While in the hospital sliding scale insulin, hold metformin Qualifiers: Diabetes mellitus intermediate school teacher insulin use: without intermediate school teacher use Diabetes mellitus complication status: without complication Qualified Code(s): E11.9 - Type 2 diabetes mellitus without complications (3) Hypertension: Continue patient's losartan. Hold hydrochlorothiazide for now. Reinitiate on discharge Qualifiers: Hypertension type: secondary to endocrine disorders Qualified Code(s): I15.2 - Hypertension secondary to endocrine disorders (4) Dyslipidemia: Continue statin Plan Depression/anxiety. Continue sertraline Thank you for this consultation Consult Attestations Medical Necessity Statement: As per primary Diagnoses Right knee DJD M17.11 Osteoarthritis type: primary DM type 2 (diabetes mellitus, type 2) E11.9 Diabetes mellitus prison insulin use: without intermediate school teacher use Diabetes mellitus complication status: without complication Hypertension I15.2 Hypertension type: secondary to endocrine disorders Dyslipidemia E78.5 Time Spent (min) 40
--- NOTE | 2023-07-19 10:55 | PM.PACU ---
PACU note Narrative: Patient is a 38-year-old female that just underwent a right knee total arthroplasty with Sky robot. Pt transferred to PACU in stable condition. Dressing is dry. pt is awake and alert. pt can wiggle toes and plantarflex and dorsiflex foot. pt able to perform straight leg raise, Femoral nerve intact. Distal pulses are palpable toes are warm and well-perfused. Cap refill is normal and under 2 seconds. Sensation to foot is intact. Pain is controlled. Exam: awake Disposition: admitted
--- NOTE | 2023-07-19 10:56 | XR_ITS ---
WS: [id number] Exam: XR knee RT 1-2V 58199 Date/Time of Exam: 07/19/2023 11:05 AM Reason For Exam: Postop right total knee arthroplasty Comparison 03/16/2023. Total knee arthroplasty has been placed and is in excellent position. Postoperative changes in the ad jacent soft tissues. IMPRESSION: 1. Total knee arthroplasty in excellent position.
[2023-07-19] MEDS: ondansetron 2 mg/ML SDV 2 mL 4 MG IVP ×2 (12:01→17:02)
--- NOTE | 2023-07-19 13:49 | ANE.PACU2 ---
Inpatient post-anesthesia follow up: Airway intact: Yes Vital signs: Temperature 97.9 F Pulse Rate 97 Respiratory Rate 17 Blood Pressure 142/74 Pulse Oximetry 95 Oxygen Delivery Me thod Nasal Cannula Oxygen Flow Rate 6 Fraction of Inspir ed Oxygen Hydration adequate: Yes Nausea and vomiting: No Pain level: 1 Mental status: Baseline
[2023-07-19] MEDS: ketorolac 30 mg/mL INJ 15 MG IVP ×2 (15:24→21:52)
--- NOTE | 2023-07-19 16:12 | PC.NURSE ---
PT at bedside at this time
[2023-07-19] MEDS: chlorhexidine gluconate 0.12% Btl 473 mL 30 ML MUCOUS MEM (17:13)
[2023-07-19] MEDS: scopolamine 1.5 Patch 1 PATCH TRANSDERMA (17:14)
[2023-07-19] MEDS: insulin lispro 100 unit/1 mL SUBCUT ×2 (17:28→21:12)
[2023-07-19] MEDS: metformin 500 mg Tablet PO (17:29)
[2023-07-19] MEDS: docusate sodium 100 mg Capsule PO (17:29)
[2023-07-19] MEDS: mupirocin oint 22 gm 1 APPLIC NASAL (17:30)
[2023-07-19 17:39] LABS: Glucose Point of Care 147 mg/dL (70-110)
[2023-07-19] MEDS: lactated ringers 1,000 ML 100 ML IV (20:43)
[2023-07-19] MEDS: TRAMadol 50 mg Tablet PO (21:55)
[2023-07-20] MEDS: chlorhexidine gluconate 0.12% Btl 473 mL 30 ML MUCOUS MEM ×2 (00:09→11:49)
[2023-07-20] MEDS: acetaminophen 1,000 MG/100 ML PIGGYBACK 400 MG IV ×2 (00:10→07:37)
[2023-07-20] MEDS: ceFAZolin 2,000 MG in sodium chloride 0.9% (plus) 50 ML 100 MG IV ×2 (00:49→08:24)
[2023-07-20 03:51] LABS: Glucose Point of Care 177 mg/dL (70-110)
[2023-07-20 05:44] LABS: Basophils % 0.4 %; Eosinophils # 0.2 10^3/uL (0.0-0.8); Hematocrit 29.9 % (36-47); Lymphocytes # 2.3 10^3/uL (0.8-4.8); Lymphocytes % 24.6 %; Mean Corpuscular HGB Conc 31.4 g/dL (30-55); Mean Corpuscular Hemoglobin 30.9 pg (27-33); Mean Corpuscular Volume 98.4 fl (85-98); Mean Platelet Volume 10.7 fL (7.4-10.4); Monocytes # 0.6 10^3/uL (0.2-0.9); Monocytes % 6.5 %; Neutrophils # 6.08 10^3/uL (1.8-7.7); Neutrophils % 66.2 %; Nucleated Red Blood Cells % 0 %; Platelet Count 177 10^3/cmm (157-399); Red Blood Count 3.04 10^6/uL (3.85-5.65); Red Cell Distribution Width 12.5 % (12.1-15.1); White Blood Count 9.19 10^3/uL (3.29-11.43)
[2023-07-20 06:01] LABS: Anion Gap 11.9 (5-19); Blood Urea Nitrogen 21 mg/dL (8-23); Calcium 8.3 mg/dL (8.5-10.5); Carbon Dioxide 26 mmol/L (22-29); Chloride 107 mmol/L (98-107); Glomerular Filtration Rate 55.1 mL/min (90-130); Glucose 99 mg/dL (65-115); Osmolality Calculated 295 mOsm/kg (285-295); Potassium 3.9 mmol/L (3.5-5.1); Sodium 141 mmol/L (136-145)
[2023-07-20] MEDS: ketorolac 30 mg/mL INJ 15 MG IVP ×2 (06:08→11:53)
--- NOTE | 2023-07-20 08:42 | PM.PN ---
Subjective Subjective: No issues overnight. Pain is under control. She believes she will be able to go home today. Medications: Reviewed: Yes Vitals/I&O/Wt Last Vital Signs Temp 97.7 F 07/19/23 23:00 Pulse 74 07/19/23 23:00 Resp 17 07/19/23 23:00 BP 127/72 07/19/23 23:00 Pulse Ox 97 07/19/23 18:43 O2 Del Method Room Air 07/19/23 18:43 O2 Flow Rate 2 07/19/23 20:00 07/19/23 07/20/23 07/20/23 22:59 06:59 14:59 Intake Total 50 / 1360 250 / 1610 Output Total 400 / 625 Balance -350 / 735 250 / 985 Weight last 48 hrs Weight 76.657 kg Physical Exam Narrative: General exam no distress Cardiovascular regular rate and rhythm without murmur Lungs clear Abdomen is soft, nontender no obvious organomegaly Extremities no cyanosis clubbing or edema, dressing right knee. No foot drop. Urinary Catheter Management: Gaines: Cath Placed During This Visit: yes, but has since been removed by the nurse Reason for Continuing Indwelling Catheter: Required Immobilization for Trauma or Surgery or Anesthesia Urinary Catheter Date of Insertion: 07/19/23 Urinary Catheter Time of Insertion: 08:35 Date Urinary Catheter Removed: 07/19/23 Time Urinary Catheter Discontinued: 21:00 Data 07/20/23 05:31 07/20/23 05:31 A&P Assessment and plan (1) Right knee DJD: Patient presents status post ORIF right knee Continue Eliquis for DVT prophylaxis She did develop acute postoperative blood loss anemia. Hemoglobin is 9.4. She is asymptomatic and does not need any transfusion. This does not need to be monitored serially, as this should go off as no continued blood loss is present Rehabilitation today, likely discharge today Qualifiers: Osteoarthritis type: primary Qualified Code(s): M17.11 - Unilateral primary osteoarthritis, right knee (2) DM type 2 (diabetes mellitus, type 2): Continue consistent carb diet Sliding scale insulin Qualifiers: Diabetes mellitus long term acute care registered nurse insulin use: without alf use Diabetes mellitus complication status: without complication Qualified Code(s): E11.9 - Type 2 diabetes mellitus without complications (3) Hypertension: Continue patient's losartan. Hold hydrochlorothiazide for now. Reinitiate on discharge Qualifiers: Hypertension type: secondary to endocrine disorders Qualified Code(s): I15.2 - Hypertension secondary to endocrine disorders (4) Dyslipidemia: Continue statin Plan Depression/anxiety. Continue sertraline Thank you for this consultation Attestations Medical Necessity Statement*: As per primary Diagnoses Right knee DJD M17.11 Osteoarthritis type: primary DM type 2 (diabetes mellitus, type 2) E11.9 Diabetes mellitus long term acute care registered nurse insulin use: without alf use Diabetes mellitus complication status: without complication Hypertension I15.2 Hypertension type: secondary to endocrine disorders Dyslipidemia E78.5 Time Spent (min) 15
[2023-07-20] MEDS: TRAMadol 50 mg Tablet PO (11:49)
[2023-07-20] MEDS: mupirocin oint 22 gm 1 APPLIC NASAL (11:49)
[2023-07-20 11:51] VITALS: BP 149/82
[2023-07-20] MEDS: atorvastatin 40 mg Tablet 20 MG PO (11:51)
[2023-07-20] MEDS: sertraline 50 mg Tablet 25 MG PO (11:51)
[2023-07-20] MEDS: losartan 50 mg Tablet PO (11:51)
[2023-07-20] MEDS: multivitamin therapeutic Tablet 1 TAB PO (11:51)
--- NOTE | 2023-07-20 12:15 | P.DS_ITS ---
Discharge Providers Date of Admission: 07/19/23 10:58 Date of Discharge: July 20, 2023 Attending Provider at Admission: Azael Pereira DO Attending Provider at Discharge: Azael Pereira DO Consults: Dr. Bishop?hospitalist Primary Care Provider: YA Lamb Diagnoses at Discharge Discharge Diagnosis (1) Status post right knee replacement: Status: Acute Reason for Visit Reason for Visit: M17.11, M25.569 Brief History: Right knee degenerative joint disease with plan for right total knee arthroplasty?Sky robotic assisted Hospital Course Hospital Course Patient presented to the preoperative holding area with plan for right total knee arthroplasty after patient has been worked up in the outpatient setting for failed conservative treatment of right knee degenerative joint disease.? Once cleared by anesthesia for surgery patient subsequently was taken back to the operative suite? underwent? anesthesia per anesthesia department and then subsequently underwent a right total knee arthroplasty.? Procedure was performed without any complications patient was taken to PACU in stable condition patient? recovered well in PACU and then was admitted to the floor postoperatively internal medicine was consulted and on board for medical management and assistance with care.? Patient received appropriate PT/OT, postoperative antibiotics, postoperative TXA, pain control, postoperative DVT prophylaxis.? Elevation and ice.? Patient encouraged for knee range of motion allowed weightbearing as tolerated to the operative lower extremity.? Dressing was changed as needed, labs were monitored daily.?? Patient recovered well postoperatively and worked well and progressed well with therapy.? It was determined on postoperative day 1 the patient was stable for discharge from an orthopedic standpoint and medicine.? Patient was comfortable with discharge and plan was discharged home.? Patient received appropriate discharge instructions as well as pain medication and DVT prophylaxis postoperatively.? Given appropriate instructions for? dressing management.? Patient will follow-up with Dr. Pereira/orthopedics in the office in 2 weeks.? All questions answered.? Understand if there is any issues questions or concerns and contact the office. Physical Exam Const: COMMON NORMALS: no acute distress, patient oriented x3 and alert Resp: COMMON NORMALS: normal respiratory effort EFFORT & INSPECTION: No respiratory distress Extremity: NARRATIVE EXTREMITY EXAM: Right knee-dressing and in knee brace is dry and intact. Toes are warm well perfused with pedal pulse 2+. Plantarflex and dorsiflex normal. Able to perform straight leg raise. Sensation intact to light touch distally. Compar tments are soft and compressible. Neuro: COMMON NORMALS: patient oriented x3 SENSORIUM/ORIENTATION: Yes alert Urinary Catheter Management: Gaines: Cath Placed During This Visit: yes, but has since been removed by the nurse Reason for Continuing Indwelling Catheter: Required Immobilization for Trauma or Surgery or Anesthesia Urinary Catheter Date of Insertion: 07/19/23 Urinary Catheter Time of Insertion: 08:35 Date Urinary Catheter Removed: 07/19/23 Time Urinary Catheter Discontinued: 21:00 Discharge Data Studies Completed and Pending Completed Studies During Hospitalization Category Date Time Status XR knee RT 1-2V 91897 Routine Exams 07/19/23 10:56 Completed Laboratory Results WBC 9.19 10^3/uL (3.29-11.43) 07/20/23 05:31 RBC 3.04 10^6/uL (3.85-5.65) L 07/20/23 05:31 Hgb 9.40 g/dL (11.27-16.99) L 07/20/23 05:31 Hct 29.9 % (36-47) L 07/20/23 05:31 MCV 98.4 fl (85-98) H 07/20/23 05:31 MCH 30.9 pg (27-33) 07/20/23 05:31 MCHC 31.4 g/dL (30-55) 07/20/23 05:31 RDW 12.5 % (12.1-15.1) 07/20/23 05:31 Plt Count 177 10^3/cmm (157-399) 07/20/23 05:31 MPV 10.7 fL (7.4-10.4) H 07/20/23 05:31 Neut % (Auto) 66.2 % 07/20/23 05:31 Lymph % (Auto) 24.6 % 07/20/23 05:31 Moffat % (Auto) 6.5 % 07/20/23 05:31 Eos % (Auto) 2.0 % 07/20/23 05:31 Baso % (Auto) 0.4 % 07/20/23 05:31 Neut # (Auto) 6.08 10^3/uL (1.8-7.7) 07/20/23 05:31 Lymph # (Auto) 2.3 10^3/uL (0.8-4.8) 07/20/23 05:31 Moffat # (Auto) 0.6 10^3/uL (0.2-0.9) 07/20/23 05:31 Eos # (Auto) 0.2 10^3/uL (0.0-0.8) 07/20/23 05:31 Baso # (Auto) 0.0 10^3/uL (0.0-0.1) 07/20/23 05:31 Nucleated RBC % (auto) 0 % 07/20/23 05:31 Nucleated RBCs # 0.0 /100WBC 07/20/23 05:31 Sodium 141 mmol/L (136-145) 07/20/23 05:31 Potassium 3.9 mmol/L (3.5-5.1) 07/20/23 05:31 Chloride 107 mmol/L (98-107) 07/20/23 05:31 Carbon Dioxide 26 mmol/L (22-29) 07/20/23 05:31 Anion Gap 11.9 (5-19) 07/20/23 05:31 BUN 21 mg/dL (8-23) 07/20/23 05:31 Creatinine 1.0 mg/dL (0.5-0.9) H 07/20/23 05:31 GFR Calculation 55.1 mL/min (90-130) L 07/20/23 05:31 Glucose 99 mg/dL (65-115) 07/20/23 05:31 POC Glucose 114 mg/dL (70-110) H 07/20/23 07:40 Calculated Osmolality 295 mOsm/kg (285-295) 07/20/23 05:31 Calcium 8.3 mg/dL (8.5-10.5) L 07/20/23 05:31 Blood Type A Positive 07/19/23 07:05 Rho(D) Type Positive 07/19/23 07:05 Antibody Screen Negative 07/19/23 07:05 Imaging Xray Ortho: Radiologist's impression: [address] [address] XRay Report Signed Patient: Kamila Mak Unit #: [id number] : 1955 Age/Sex: 68 / F ADM Date: 07/19/23 Loc: [facility] Room/Bed: [facility] Attending Dr: Azael Pereira DO Ordering Provider/Ordering MD: Micah Pereira Date of Service: 07/19/23 Procedure(s): XR knee RT 1-2V 76840 Accession Number(s): [id number] Report Number: [id number]: [id number] Exam: XR knee RT 1-2V 56364 Date/Time of Exam: 07/19/2023 11:05 AM Reason For Exam: Postop right total knee arthroplasty Comparison 03/16/2023. Total knee arthroplasty has been placed and is in excellent position. Postoperative changes in the adjacent soft tissues. IMPRESSION: 1. Total knee arthroplasty in excellent position. Procedures Performed Right total knee arthroplasty Sky robotic assisted Vitals Last Vital Signs Temp 97.9 F 07/20/23 14:55 Pulse 81 07/20/23 14:55 Resp 16 07/20/23 14:55 BP 144/79 07/20/23 14:55 Pulse Ox 97 07/20/23 14:45 O2 Del Method Room Air 07/20/23 14:55 O2 Flow Rate 2 07/19/23 20:00 Discharge Plan Discharge Patient Disposition: Home Health Service Condition: Stable Prescriptions: New Eliquis 2.5 mg tablet 2.5 mg PO BID 14 Days Qty: 28 0RF Percocet 5-325 mg tablet 1 tab PO Q6H PRN (Reason: pain) 7 Days Qty: 28 0RF Continued metformin 500 mg tablet 500 mg PO BID losartan-hydrochlorothiazide 50-12.5 mg tablet 1 tab PO DAILY lovastatin 10 mg tablet 10 mg PO DAILY ascorbate calcium (vitamin C) 500 mg tablet 500 mg PO DAILY zinc sulfate 25 mg zinc (110 mg) tablet 25 mg PO DAILY cholecalciferol (vitamin D3) 25 mcg (1,000 unit) capsule 25 mcg PO DAILY glucosamine HCl 500 mg tablet 500 mg PO DAILY Rx Instructions: administer with a meal sertraline 25 mg tablet 25 mg PO DAILY Discontinued aspirin [Adult Low Dose Aspirin] 81 mg tablet,delayed release (DR/EC) 81 mg PO DAILY Discharge Orders: Discharge Order (Routine); Ordered 07/20/23 Ordered By: Azael Pereira Other Ambulatory Orders: DME: Walker (Order) Location: None Selected Ordered By: Azael Pereira Referrals: [facility] [Outside] [email or web address] silvestre [Physician] - 08/03/23 8:00 am Discharge Diet: Advance as tolerated Discharge Activity: Limit activity as instructed Patient Instructions: Precautions after Total Joint Replacement Surgery (GEN), Joint Replacement Surgery (GEN), Total Knee Replacement (GEN), Opioid Safety Activity Restrictions/Additional Instructions: Ortho discharge instructions Keep incisions clean dry and intact, leave Silverlon bandage dressings on in place for 7 days after that may rinse incisions with warm soapy water pat dry and redress with a dry dressing. Patient may weight-bear as tolerate to the operative extremity Utilize crutches as needed Encourage knee range of motion Ice and elevate as needed for pain and swelling Take pain medication as prescribed Take antinausea medication as needed The prescribed Eliquis twice daily for the next 14 days for blood clot prevention May supplement for pain with ibuprofen [id number] as needed No baths or soaks Follow-up in the orthopedic office in 2 weeks Contact the office for any questions or concerns Discharge Attestations Time Spent in Discharge Care*: less than 30 min Quality Metrics Clinical Quality Measures [ No reported AMI, CVA or VTE this stay] Coding Level of Care Code Acute Code for Chg Fwd Diagnoses Status post right knee replacement Z96.651 Time Spent (min) 25
--- NOTE | 2023-07-20 13:24 | PM.PN ---
Subjective Subjective: Patient is a 68-year-old female that is 1 day postop right total knee arthroplasty. No acute issues overnight. Patient is doing well and denies any current pain. She has been able to ambulate with PT. She feels good to go home today. Vitals/I&O/Wt Last Vital Signs Temp 97.7 F 07/19/23 23:00 Pulse 74 07/19/23 23:00 Resp 17 07/19/23 23:00 BP 149/82 07/20/23 11:51 Pulse Ox 97 07/19/23 18:43 O2 Del Method Room Air 07/19/23 18:43 O2 Flow Rate 2 07/19/23 20:00 07/19/23 07/20/23 07/20/23 22:59 06:59 14:59 Intake Total 50 / 1360 250 / 1610 Output Total 400 / 625 Balance -350 / 735 250 / 985 Physical Exam Const: COMMON NORMALS: no acute distress, patient oriented x3 and alert Resp: COMMON NORMALS: normal respiratory effort EFFORT & INSPECTION: No respiratory distress Extremity: NARRATIVE EXTREMITY EXAM: Right knee-dressing and in knee brace is dry and intact. Toes are warm well perfused with pedal pulse 2+. Plantarflex and dorsiflex normal. Able to perform straight leg raise. Sensation intact to light touch distally. Compartments are soft and compressible. Neuro: COMMON NORMALS: patient oriented x3 SENSORIUM/ORIENTATION: Yes alert Urinary Catheter Management: Gaines: Cath Placed During This Visit: yes, but has since been removed by the nurse Reason for Continuing Indwelling Catheter: Required Immobilization for Trauma or Surgery or Anesthesia Urinary Catheter Date of Insertion: 07/19/23 Urinary Catheter Time of Insertion: 08:35 Date Urinary Catheter Removed: 07/19/23 Time Urinary Catheter Discontinued: 21:00 Data 07/20/23 05:31 07/20/23 05:31 A&P Assessment and plan (1) Status post right knee replacement: Plan Plan: -Hospitalist for medical management -Labs and imaging reviewed. -Take Eliquis twice daily as prescribed for the next 14 days -Take pain meds as prescribed -PT -Weight-bear as tolerated -Ice to help with swelling -dry dressing change as needed Patient is cleared from an Ortho standpoint and she can be discharged home with home therapy. Attestations Medical Necessity Statement*: Ongoing care for right total knee arthroplasty Coding Level of Care Code Acute Code for Chg Fwd Diagnoses Status post right knee replacement Z96.651
[2023-07-20 14:45] VITALS: RESP 16; O2SAT 97
[2023-07-20] MEDS: oxyCODONE 5 mg IR Tab/Cap PO (14:45)
[2023-07-20] MEDS: calcium carb-vit d 600mg/400unit 1 Tablet 1 EACH PO (14:47)
[2023-07-20] MEDS: apixaban 5 mg Tablet 2.5 MG PO (14:47)
[2023-07-20 14:55] VITALS: BP 144/79; PULSE 81; RESP 16; TEMP 36.6
[2023-07-20 20:50] LABS: Glucose Point of Care 114 mg/dL (70-110)
== END 2023-07-20 15:10 | disposition home health service (06) ==
LOC: OBGYN 10:59
PROVIDERS: Admitting Provider Student in an Organized Health Care Education/Training Program; PCP Nurse Practitioner Family; Visit Provider Student in an Organized Health Care Education/Training Program
PROC: 8E0Y0CZ Robotic Assisted Procedure of Lower Extremity, Open Approach (ICD-10-PCS; CPT 27447; principal; 2023-07-19 07:55)
DX: M17.11 Unilateral primary osteoarthritis, right knee (principal); E11.9 Type 2 diabetes mellitus without complications; I15.2 Hypertension secondary to endocrine disorders; E78.5 Hyperlipidemia, unspecified; I10 Essential (primary) hypertension
CPT/HCPCS: 27447; 36415; 36416; 51702; 73560; 80048; 82962; 85025; 86850; 86900; 96372; 97110; 97116; 97161; C1713; C1776; G0378; J0131; J0171; J0690; J1170; J1815; J1885; J2405; J2704; J2795; J3010; J3370; J7030; J7120

== ENCOUNTER → 2023-08-03 08:46 | Outpatient (BNVA) | payer MEDICARE, OTHER, SELFPAY | PROVIDERS: PCP Nurse Practitioner Family; Visit Provider Student in an Organized Health Care Education/Training Program | DX: Z96.651 Presence of right artificial knee joint (principal) | CPT/HCPCS: 73560; 73565; 99024 ==

== ENCOUNTER 2023-08-08 16:31 | Outpatient (RCR) | payer MEDICARE, OTHER, SELFPAY | END 2023-09-05 23:59 | disposition home or self-care (01) | LOC: SPT 16:31 | PROVIDERS: Visit Provider Student in an Organized Health Care Education/Training Program | DX: Z47.1 Aftercare following joint replacement surgery (principal); Z96.651 Presence of right artificial knee joint | CPT/HCPCS: 97110; 97161 ==

== ENCOUNTER 2023-09-06 06:00 | Outpatient (RCR) | payer MEDICARE, OTHER, SELFPAY | END 2023-09-14 23:59 | disposition home or self-care (01) | LOC: SPT 06:00 | PROVIDERS: Visit Provider Student in an Organized Health Care Education/Training Program | DX: Z47.1 Aftercare following joint replacement surgery (principal); Z96.651 Presence of right artificial knee joint | CPT/HCPCS: 97110 ==

== ENCOUNTER → 2023-09-14 15:25 | Outpatient (BNVA) | payer MEDICARE, OTHER, SELFPAY | PROVIDERS: Visit Provider Student in an Organized Health Care Education/Training Program | DX: Z96.651 Presence of right artificial knee joint (principal) | CPT/HCPCS: 73560; 73565; 99024; 99213 ==

== ENCOUNTER → 2024-07-16 12:52 | Outpatient (BNVA) | payer MEDICARE, OTHER, SELFPAY | PROVIDERS: PCP Nurse Practitioner Family; Visit Provider Student in an Organized Health Care Education/Training Program | DX: Z96.651 Presence of right artificial knee joint (principal); Z47.1 Aftercare following joint replacement surgery | CPT/HCPCS: 73560; 73565; 99213 ==

== ENCOUNTER 2024-12-30 14:26 | Observation (INO) | payer MEDICARE, OTHER, SELFPAY ==
[2024-12-30] VITALS (16 sets, daily range): BP systolic 102–175; BP diastolic 64–108; PULSE 14–94; RESP 12–20; TEMP 36.3–36.7; O2SAT 92–99; BMI 30.4
[2024-12-30 10:52] LABS: Glucose Point of Care 174 mg/dL (70-110)
[2024-12-30] MEDS: sodium chloride 0.9% 1,000 ML 30 ML IV (11:03)
[2024-12-30] MEDS: enoxaparin 30 mg/0.3 mL Syringe SUBCUT (11:05)
[2024-12-30] MEDS: scopolamine 1 mg PATCH 1 PATCH TRANSDERMA (11:05)
[2024-12-30] MEDS: metroNIDAZOLE IV 500 MG/100 ML PREMIX 100 MG IV (11:13)
[2024-12-30 11:37] LABS: Basophils # 0.1 10^3/uL (0.0-0.1); Basophils % 0.4 %; Lymphocytes # 3.4 10^3/uL (0.8-4.8); Lymphocytes % 21.9 %; Mean Corpuscular HGB Conc 32.2 g/dL (30-55); Mean Corpuscular Hemoglobin 29.4 pg (27-33); Mean Corpuscular Volume 91.1 fl (85-98); Mean Platelet Volume 10.7 fL (7.4-10.4); Monocytes # 1.2 10^3/uL (0.2-0.9); Monocytes % 7.6 %; Neutrophils # 10.38 10^3/uL (1.8-7.7); Neutrophils % 66.1 %; Nucleated Red Blood Cells % 0.1 %; Platelet Count 432 10^3/cmm (157-399); Red Blood Count 3.95 10^6/uL (3.85-5.65); Red Cell Distribution Width 12.5 % (12.1-15.1); White Blood Count 15.71 10^3/uL (3.29-11.43)
--- NOTE | 2024-12-30 11:48 | ANES.PREANE2 ---
Pre-Anesthetic Assessment Height/Weight: Height 1.6 m Weight 78.018 kg Temp Pulse Resp BP Pulse Ox O2 Del Method 97.3 F L 84 18 175/108 94 Room Air 12/30/24 10:35 12/30/24 10:35 12/30/24 10:35 12/30/24 11:05 12/30/24 10:35 12/30/24 10:40 Preop Diagnosis: Cystocele with uterine prolapse Operation Date: 12/30/24 12:00 Proposed Procedures p Total Vaginal Hysterectomy 20729, 20852, 63458, N81.4(Not Applicable) - Bright Turner MD s Salpingo-Oophorectomy (Vaginal)(Not Applicable) - Bright Turner MD s Anterior Repair Anterior Colporrhaphy(Not Applicable) - Bright Turner MD s Sling Single Incision Sling(Not Applicable) - Bright Turner MD Familial anesthetic complications: Patient states she was told she has a short opening in her throat. Was told for ankle surgery that they would do a spinal because they weren't sure if they could get that thing in there. Thyromental distance > 3 fingerbreadths, poor ability to sublux jaw and bite upper lip. Never told was difficul to bag mask. Was Beta James taken within 24 hours: N/A Was Clonidine taken within 24 hours: N/A Last intake: Intake Last Liquid Date 12/29/24 Last Liquid Time 22:00 Last Solid Date 12/29/24 Last Solid Time 17:00 Social No alcohol and No tobacco Exam alert, oriented x 3, clear to auscultation bilaterally and regular rate & rhythm Airway Mallampati: Class III Dentition: full CV/HEM Hypertension Metabolic Diabetes Mellitus Anesthetic Plan ASA status: 3 Anesthesia: General Risk of > 500 ml blood loss (7ml/kg in children): No Medications/Allergies Home Medications ?Medication ?Instructions ?Recorded ?Confirmed ?Last Taken ?Type ascorbate calcium (vitamin C) 500 500 mg PO DAILY 03/16/23 12/27/24 12/29/24 History mg tablet cholecalciferol (vitamin D3) 25 25 mcg PO DAILY 03/16/23 12/27/24 12/29/24 History mcg (1,000 unit) capsule glucosamine HCl 500 mg tablet 500 mg PO DAILY 03/16/23 12/27/24 12/29/24 History losartan 50 mg-hydrochlorothiazide 1 tab PO DAILY 03/16/23 12/27/24 12/29/24 History 12.5 mg tablet lovastatin 10 mg tablet 10 mg PO DAILY 03/16/23 12/27/24 12/29/24 History metformin 500 mg tablet 500 mg PO BID 03/16/23 12/27/24 12/29/24 History zinc sulfate 25 mg zinc (110 mg) 25 mg PO DAILY 03/16/23 12/27/24 12/29/24 History tablet sertraline 25 mg tablet 25 mg PO DAILY 07/11/23 12/27/24 12/26/24 History doxycycline hyclate 100 mg tablet 100 mg PO BID 7 days #14 tabs 12/25/24 12/27/24 12/29/24 Rx fluticasone propionate 50 1 spray intranasal DAILY PRN nasal 12/25/24 12/27/24 12/29/24 Rx mcg/actuation nasal congestion #16 grams spray,suspension (Flonase Allergy Relief) prednisone 20 mg tablet 20 mg PO BID 5 days #10 tabs 12/25/24 12/27/24 12/29/24 Rx promethazine-DM 6.25 mg-15 mg/5 mL 5 ml PO Q6H PRN cough #473 mL 12/27/24 12/27/24 12/29/24 Rx oral syrup aspirin 81 mg tablet 81 mg PO DAILY 12/30/24 12/30/24 12/23/24 History Allergies Allergy/AdvReac Type Severity Reaction Status Date / Time ciprofloxacin (From Cipro) Allergy Severe ALGY-Anaphy Verified 12/27/24 12:29 laxis Current Medications Generic Name Dose Route Start Last Admin Trade Name Freq PRN Reason Stop Dose Admin Sodium Chloride 1,000 mls @ 30 mls/hr 12/30/24 10:30 12/30/24 11:03 Sodium Chloride 0.9% IV 12/31/24 10:29 30 mls/hr .Q24H NARENDRA Administration PFSH Anesthesia Medical History Depression with anxiety Dyslipidemia DM type 2 (diabetes mellitus, type 2) Hypertension Surgical History History of ankle surgery right ankle surgery in [facility] History of cataract surgery Family History Father Diabetes Mother Heart disease Hypertension Other CAD (coronary artery disease) Lung disease Denies family history of Clotting disorder Anesthesia complication Bleeding disorder Social History Smoking and tobacco/nicotine status: never used tobacco/nicotine Alcohol intake: never Marital status: Data Anesthesia 12/30/24 10:57 12/30/24 10:57 Short CBC 12/30/24 Range/Units 10:57 WBC 15.71 H (3.29-11.43) 10^3/uL Hgb 11.60 (11.27-16.99) g/dL Hct 36.0 (36-47) % MCV 91.1 (85-98) fl Plt Count 432 H (157-399) 10^3/cmm Neut % (Auto) 66.1 % Neut # (Auto) 10.38 H (1.8-7.7) 10^3/uL Cardiac Studies: No Data to Display
[2024-12-30 11:51] LABS: Alanine Aminotransferase 16 U/L (0-33); Albumin Level 3.9 g/dL (3.5-5.2); Alkaline Phosphatase 64 U/L (35-105); Anion Gap 15.7 (5-19); Aspartate Amino Transferase 6 U/L (0-32); Blood Urea Nitrogen 34 mg/dL (8-23); Calcium 9.7 mg/dL (8.5-10.5); Carbon Dioxide 23 mmol/L (22-29); Chloride 104 mmol/L (98-107); Creatinine Clr Calc Pharmacy 65.6382; Globulin 3.1 g/dL (1.3-4.6); Glomerular Filtration Rate 71.1 mL/min (90-130); Glucose 177 mg/dL (65-115); Osmolality Calculated 300 mOsm/kg (285-295); Potassium 3.7 mmol/L (3.5-5.1); Sodium 139 mmol/L (136-145); Total Bilirubin 0.2 mg/dL (0.15-1.2)
--- NOTE | 2024-12-30 12:03 | W.PM.OPSUD ---
Surgery/Procedure H&P Update DATE OF PROCEDURE: December 30, 2024 DATE H&P PERFORMED: 12/27/24 H&P UPDATE INFORMATION: I have reviewed H&P completed within last 30 days, I have examined patient prior to procedure and No changes to prior documentation PREOP DIAGNOSIS: Cystocele with uterine prolapse PLANNED PROCEDURE: Operation Date: 12/30/24 12:00 Proposed Procedures p Total Vaginal Hysterectomy 88492, 29330, 33523, N81.4(Not Applicable) - Bright Turner MD s Salpingo-Oophorectomy (Vaginal)(Not Applicable) - Bright Turner MD s Anterior Repair Anterior Colporrhaphy(Not Applicable) - Bright Turner MD s Sling Single Incision Sling(Not Applicable) - Bright Turner MD
[2024-12-30] MEDS: ceFAZolin 2,000 mg SDV 2000 MG IVP (12:40)
[2024-12-30] MEDS: lidocaine-epi 2% PF 1:200,000 20 mL SDV 40 ML XX (13:00)
--- NOTE | 2024-12-30 14:09 | W.PM.BPON ---
Date of Procedure: 12/30/24 Surgeon: Bright Turner MD Armature And Rotor Winder(s): Procedure(s) performed: Total vaginal hysterectomy with bilateral salpingo-oophorectomy, anterior colporrhaphy, mid urethral sling Findings of the procedure(s): Uterine prolapse with cystocele Estimated blood loss: 100 Specimen(s) removed: Uterus, left and right fallopian tube and ovary Post-operative diagnosis: Status post TVH and BSO, anterior colporrhaphy and mid urethral sling
--- NOTE | 2024-12-30 14:10 | P.OP_ITS ---
Operative Report Date of procedure: December 30, 2024 Pre-op diagnosis: Uterine prolapse with cystocele Post-op diagnosis: same Procedure done: Total vaginal hysterectomy with bilateral salpingo-oophorectomy Anterior colporrhaphy Mid urethral sling Cystoscopy Implants: Coloplast Altis sling Surgeon: Bright Turner MD Estimated blood loss (mL): 100 IV fluids (mL): 1,300 Urine output (mL): 200 Procedure: After informed consent and risks, benefits, indications and alternatives reviewed with the patient was taken to the operating room. The patient was placed in dorsal lithotomy position prepped, and draped in the usual sterile fashion. The pre-procedure timeout verifying the correct patient, procedure, site and side, could not requirements was performed and acknowledge by the OR te am. A Gaines catheter was placed. A Bookwalter vaginal retractor was placed into the vagina in usual manner visualize the cervix. Cervix was grasped with a single tooth tenaculum and circumferentially infiltrated with 2% lidocaine with epinephrine. Then cervix was circumferentially incised with bovie and the bladder was dissected off the pubovesical cervical fascia anteriorly with a sponge stick and Metzenbaum scissors. The anterior peritoneal reflection was identified and the anterior cul-de-sac was entered sharply with Metzenbaum scissors. The same procedure was performed posteriorly and a posterior colpotomy was made through the posterior cul-de-sac space without difficulty and the posterior blade of the Bookwalter vaginal retractor was advanced posteriorly into the cul-de-sac. At this time, the left and right uterosacral ligaments were isolated and ligated with 0 Vicryl. The LigaSure device was placed over the uterosacral ligaments on either side and was then used in a serial fashion up through the cardinal ligaments bilaterally cross-clamped, cut, and sealed with the LigaSure device. Finally, the uterine arteries were cross-clamped, cut, sealed and ligated with the LigaSure device. Hemostasis was assured. The broad ligaments were then serially clamped, sealed and cut with the LigaSure device on both sides. Excellent hemostasis was visualized. Both cornua were clamped, sealed and cut with the LigaSure device. Then the pedicles were then suture ligated with excellent hemostasis. The uterus was excised and submitted for pathologic evaluation. No other abnormali ties were noted in the pelvic cavity. Then the right side Infundibular ligament was identified. The ureter was confirmed along the pelvic side wall and peristalsis was noted. The LigaSure device was then used to clamp, sealed and transcepted at middistance, again being sure to be clear of the ureter and the fallopian tube and ovary were removed. The same process was then repeated on the left side. Good hemostasis was assure on both sides. The anterior vaginal mucosa beneath the midurethra was infiltrated with 2% lidocaine with epinephrine. A vertical midline incision was made beneath the mi durethra, nearly 1.5 cm length. Careful submucosal dissection was performed bilaterally up to the interior portion of the inferior pubic ramus. The insertion of adductor longus tendon on the patient?s pubic ramus was identified as reference land sandrine. Palpated the notch along the internal edge of ischiopubic ramus where the adductor longus tendon and the inferior pubic ramus meet. The Altis single incision sling (SIS) was selected. Then the needle of the SIS inserted aiming at the location of this notch. One of the integrated self- fixating tips place onto the needle by sliding it over the end of the needle. The needle/sling assembly was inserted toward the location of identified reference notch making sure that the flat of the handle is perpendicular to the desired path. The needle was tracked along the posterior surface of the ischiopubic ramus until the midline sandrine on the mesh is approximately at the midline position under the urethra. The needle was removed and the same was repeated on the contralateral side until the appropriate sling tension under the urethra was achieved ensuring that the mesh lays flat. The needle was removed and vaginal incision was closed in a running interlocking fashion with 2-0 Vicryl. An anterior repair was then performed. The medial portion of the anterior vaginal wall was grasped with two Allis clamps and the mucosa was infiltrated with the previous 2% lidocaine with epinephrine solution. The Metzenbaum scissors were used to dissect and undermine a plane medially up to the point of reflexion anteriorly of the bladder. The vaginal mucosa was incised medially. This tissue was then grasped with Vandana clamps and dissected away with a combination of sharp and blunt dissection on both sides. A suture of 2-0 vicryl was then used to connect the lateral pubovesical connective tissue on either side together in a series of bites that was repeated in two layers. The excess vaginal mucosa was trimmed and the incision repaired with a locked suture of 0 vicryl. The peritoneum was then closed in a pursestring fashion with 0 Vicryl suture. The vaginal cuff angles were closed with [id number] #0 Vicryl suture on both sides and transfixed with the ipsilateral cardinal and uterosacral ligaments. The remainder of the vaginal cuff was closed with #0 Vicryl in a running locked fashion. At this time, instruments were removed from the vagina at hemostasis assured. Then the Gaines catheter was removed and cystoscope was inserted. The bladder was filled with sterile water. Complete evaluation of the bladder mucosa was performed noting no lacerations, dimpling, tears, bleeding of the mucosa or muscular layers. Both ureteral orifices were identified. Prompt excretion of urine from both ureteral orifices was noted. Cystoscope was withdrawn. Gaines catheter was then placed yielding clear remigio urine. A vaginal packing was placed and the patient was taken out of dorsal lithotomy position and awakened from the general anesthesia. The patient tolerated the procedure well and was taken to the PACU recovery room in a stable condition. Sponge, lap, needle and instruments counts were correct x3.
--- NOTE | 2024-12-30 14:29 | SUR.PHASEI ---
14:14 RECEIVED PT FROM OR STAFF. AIRWAY IN PLACE SPONTANEOUS RESPIRATIONS WITH GOOD CHEST RISE AND FALL. NSR ON MONITOR. JULES PATENT AND SECURE. NO ACTIVE BLEEDING NOTICED.
[2024-12-30 14:52] LABS: Glucose Point of Care 197 mg/dL (70-110)
--- NOTE | 2024-12-30 15:05 | ANE.PACU2 ---
Inpatient post-anesthesia follow up: Airway intact: Yes Vital signs: Temperature 97.5 F Pulse Rate 14 Respiratory Rate 16 Blood Pressure 159/84 Pulse Oximetry 96 Oxygen Delivery Me thod Room Air Oxygen Flow Rate 2 Fraction of Inspir ed Oxygen Hydration adequate: Yes Nausea and vomiting: No Pain level: 1 Mental status: Baseline
[2024-12-30] MEDS: dextrose 5%-lactated ringers 1,000 ML 125 ML IV (16:27)
[2024-12-30] MEDS: ketorolac 30 mg/mL INJ IVP ×2 (16:27→22:51)
[2024-12-30] MEDS: guaiFENesin 100 mg/5 mL UDC 10 mL 400 MG PO (18:23)
[2024-12-30] MEDS: docusate sodium 100 mg Capsule PO (18:24)
[2024-12-30] MEDS: metformin 500 mg Tablet PO (18:24)
[2024-12-30] MEDS: predniSONE 10 mg Tablet 20 MG PO (18:24)
[2024-12-30] MEDS: HYDROcodone-acetaminophen 5-325 mg Tablet PO (20:50)
[2024-12-30] MEDS: simethicone 80 mg Chew PO (22:51)
[2024-12-31 04:00] VITALS: BP 139/74; PULSE 81; RESP 18; TEMP 36.5; O2SAT 95
[2024-12-31] MEDS: ketorolac 30 mg/mL INJ IVP (05:02)
--- NOTE | 2024-12-31 05:13 | PC.NURSE ---
Vaginal packing removed. Patient tolerated procedure well. Scant bleeding noted.
[2024-12-31 05:19] LABS: Hematocrit 30.9 % (36-47); Mean Corpuscular Hemoglobin 29.9 pg (27-33); Mean Corpuscular Volume 93.4 fl (85-98); Mean Platelet Volume 10.4 fL (7.4-10.4); Platelet Count 371 10^3/cmm (157-399); Red Blood Count 3.31 10^6/uL (3.85-5.65); Red Cell Distribution Width 12.5 % (12.1-15.1); White Blood Count 19.21 10^3/uL (3.29-11.43)
--- NOTE | 2024-12-31 09:57 | P.DS_ITS ---
Discharge Providers CLARIFIER OPERATOR HELPER Date of Admission: 12/30/24 14:26 Date of Discharge: 12/31/24 Attending Provider at Admission: Bright Turner MD Attending Provider at Discharge: Bright Turner MD Primary Care Provider: YA Lamb Reason for Visit Reason for Visit: N81.4 Hospital Course Hospital Course Mrs. Alvarenga is a 69-year-old female with a history of uterine prolapse with cystocele and mixed incontinence. Admitted for total vaginal hysterectomy with bilateral salpingo-oophorectomy, anterior colporrhaphy, and mid urethral sling. The procedures were performed without complication. Overnight observation uneventful. She is afebrile and hemodynamically stable postoperative day 1. PVR within normal limits. Tolerating diet well. Ambulating without difficulty. She was counseled regarding pelvic rest for 6 weeks (no sex, no tampons, no vaginal douches). Return to the emergency room if any fever, increased bleeding or pain. She was also advised on limitation of heavy weight lifting to 10 pounds. Physical Exam Narrative: GA: Alert and oriented ?3. HEENT: WNL. Heart: Regular rate and rhythm. Lungs: Clear to auscultation bilaterally. Abdomen: Bowel sounds present, nontender. SECRETARY OFFICE CLERK: spotting bleeding. Extremities: No edema, no cyanosis, no calves pain. Urinary Catheter Management: Gaines: Cath Placed During This Visit: yes, but has since been removed by the nurse Reason for Continuing Indwelling Catheter: Decision to DC Catheter Date Urinary Catheter Removed: 12/31/24 Time Urinary Catheter Discontinued: 05:13 Discharge Data Studies Completed and Pending Pending at discharge Category Date Time Status Pathology: Surgical [PTH] Routine Pth 12/30/24 13:39 Received Laboratory Results WBC 19.21 10^3/uL (3.29-11.43) H 12/31/24 05:10 RBC 3.31 10^6/uL (3.85-5.65) L 12/31/24 05:10 Hgb 9.90 g/dL (11.27-16.99) L 12/31/24 05:10 Hct 30.9 % (36-47) L 12/31/24 05:10 MCV 93.4 fl (85-98) 12/31/24 05:10 MCH 29.9 pg (27-33) 12/31/24 05:10 MCHC 32.0 g/dL (30-55) 12/31/24 05:10 RDW 12.5 % (12.1-15.1) 12/31/24 05:10 Plt Count 371 10^3/cmm (157-399) 12/31/24 05:10 MPV 10.4 fL (7.4-10.4) 12/31/24 05:10 Neut % (Auto) 66.1 % 12/30/24 10:57 Lymph % (Auto) 21.9 % 12/30/24 10:57 [place] % (Auto) 7.6 % 12/30/24 10:57 Eos % (Auto) 0.0 % 12/30/24 10:57 Baso % (Auto) 0.4 % 12/30/24 10:57 Neut # (Auto) 10.38 10^3/uL (1.8-7.7) H 12/30/24 10:57 Lymph # (Auto) 3.4 10^3/uL (0.8-4.8) 12/30/24 10:57 [place] # (Auto) 1.2 10^3/uL (0.2-0.9) H 12/30/24 10:57 Eos # (Auto) 0.0 10^3/uL (0.0-0.8) 12/30/24 10:57 Baso # (Auto) 0.1 10^3/uL (0.0-0.1) 12/30/24 10:57 Nucleated RBC % (auto) 0.1 % 12/30/24 10:57 Nucleated RBCs # 0.0 /100WBC 12/30/24 10:57 Sodium 139 mmol/L (136-145) 12/30/24 10:57 Potassium 3.7 mmol/L (3.5-5.1) 12/30/24 10:57 Chloride 104 mmol/L (98-107) 12/30/24 10:57 Carbon Dioxide 23 mmol/L (22-29) 12/30/24 10:57 Anion Gap 15.7 (5-19) 12/30/24 10:57 BUN 34 mg/dL (8-23) H 12/30/24 10:57 Creatinine 0.8 mg/dL (0.5-0.9) 12/30/24 10:57 GFR Calculation 71.1 mL/min (90-130) L 12/30/24 10:57 Glucose 177 mg/dL (65-115) H 12/30/24 10:57 POC Glucose 197 mg/dL (70-110) H 12/30/24 14:47 Calculated Osmolality 300 mOsm/kg (285-295) H 12/30/24 10:57 Calcium 9.7 mg/dL (8.5-10.5) 12/30/24 10:57 Total Bilirubin 0.2 mg/dL (0.15-1.2) 12/30/24 10:57 AST 6 U/L (0-32) 12/30/24 10:57 ALT 16 U/L (0-33) 12/30/24 10:57 Alkaline Phosphatase 64 U/L (35-105) 12/30/24 10:57 Total Protein 7.0 g/dL (6.6-8.7) 12/30/24 10:57 Albumin 3.9 g/dL (3.5-5.2) 12/30/24 10:57 Globulin 3.1 g/dL (1.3-4.6) 12/30/24 10:57 Blood Type A Positive 12/30/24 10:57 Rho(D) Type Rh positive 12/30/24 10:57 Antibody Screen Negative 12/30/24 10:57 Vitals Last Vital Signs Temp 97.7 F 12/31/24 04:00 Pulse 81 12/31/24 04:00 Resp 18 12/31/24 04:00 BP 139/74 12/31/24 04:00 Pulse Ox 95 12/31/24 04:00 O2 Del Method Room Air 12/31/24 04:00 O2 Flow Rate 2 12/30/24 14:50 Results Labs OB ([facility]): Blood Type A Positive 12/30/24 Antibody Screen Negative 12/30/24 Hct 30.9 % (36-47) L 12/31/24 Hgb 9.90 g/dL (11.27-16.99) L 12/31/24 Rho(D) Type Rh positive 12/30/24 Plt Count 371 10^3/cmm (157-399) 12/31/24 Hemoglobin A1c 6.5 % (4.0-6.0) H 07/11/23 Discharge Plan Discharge Patient Disposition: Home Condition: Stable Prescriptions: New hydrocodone-acetaminophen 5-325 mg tablet 1 tab PO Q4H PRN (Reason: pain) Qty: 20 0RF acetaminophen 325 mg capsule 325 mg PO Q4H PRN (Reason: fever or pain) Qty: 60 0RF docusate sodium [Colace] 100 mg capsule 100 mg PO BID Qty: 60 0RF ferrous sulfate [Iron (ferrous sulfate)] 325 mg (65 mg iron) tablet 325 mg PO BID Qty: 60 0RF ibuprofen 800 mg tablet 800 mg PO TID PRN (Reason: pain) Qty: 60 0RF nitrofurantoin macrocrystal 100 mg capsule 100 mg PO BID 3 Days Qty: 6 0RF Rx Instructions: must administer with a meal/food Continued metformin 500 mg tablet 500 mg PO BID losartan-hydrochlorothiazide 50-12.5 mg tablet 1 tab PO DAILY lovastatin 10 mg tablet 10 mg PO DAILY ascorbate calcium (vitamin C) 500 mg tablet 500 mg PO DAILY zinc sulfate 25 mg zinc (110 mg) tablet 25 mg PO DAILY cholecalciferol (vitamin D3) 25 mcg (1,000 unit) capsule 25 mcg PO DAILY glucosamine HCl 500 mg tablet 500 mg PO DAILY Rx Instructions: administer with a meal sertraline 25 mg tablet 25 mg PO DAILY doxycycline hyclate 100 mg tablet 100 mg PO BID 7 Days Qty: 14 0RF prednisone 20 mg tablet 20 mg PO BID 5 Days Qty: 10 0RF fluticasone propionate [Flonase Allergy Relief] 50 mcg/actuation spray,suspension 1 spray intranasal DAILY PRN (Reason: nasal congestion) Qty: 16 0RF Rx Instructions: administer into each nostril promethazine-DM 6.25-15 mg/5 mL syrup 5 ml PO Q6H PRN (Reason: cough) Qty: 473 0RF aspirin 81 mg Tablet 81 mg PO DAILY Discharge Orders: Discharge Order (Routine); Ordered 12/31/24 Ordered By: Bright Turner Discharge Diet: GI Soft and Soft Mechanical Discharge Activity: Limit activity as instructed Patient Instructions: Acute Wound Care (DC), Opioid Safety, Post Anesthesia Care, Vaginal Hysterectomy (GEN), Bladder Sling for Women (GEN), Anterior Vaginal Repair (GEN) Activity Restrictions/Additional Instructions: 1. Please call [facility] on next working day to make your post-operative appointment in 2 weeks. 2. Please stay home until you come back to the clinic on first post- hospatilization check up. 3. Please follow instructions on your medications CAREFULLY. 4. If you have abdominal incision, do not cover it unless dressing is necessary because of drainage. OK to shower, but avoid bath. Leave steri-strips until they fall off. If they are still on one week after surgery, you may remove them. 5. If you had vaginal surgery or vaginal repair, Dr. Turner may instruct you to take SITZ bath. 6. Yellow, blood tinged odorous vaginal discharge is usually normal after hysterectomy or vaginal surgeries. 7. No SEXUAL INTERCOURSE, tampons, or douches until you are completely released from the post-operative care. 8. Avoid constipation by eating right and maybe using some Metamucil or Milk of Magnesia. 9. All prescription refills are given during the working hours. Please do no wait till it runs out. Call the clinic at [phone] before your medication runs out. The clinic will get in touch with your doctor to prescribe medications if necessary. 10. Please remain within 40 mile radius from our hospital because emergencies do happen now and then during the post-operative period. 11. If you have stairs at home, take one step at a time slowly and minimize the number of trips. It helps to stay in one floor for the next few days. No lifting except what you can lift by one hand until you are released from the post-operative care. 12. Driving is discouraged until you are well healed. It may be 3-4 weeks before you feel strong enough to drive. You should be able to turn and look th rough the rear window without pain and you should be able to push the brake pedal very hard without pain before you drive. No fast rules, but SAFETY should be your primary concern. DO NOT drive if you are on sedating medications such as narcotics. 13. Call the clinic (during working hours) to make urgent appointment or go to the Emergency room, if any of the following occurs: i. Vaginal bleeding becomes heavy, more than a period. ii. Incision becomes red and sore, or drains pus. iii. Your TEMPERATURE is over 100.4F or you have chill. iv. IV site becomes red and swollen (a little ``knot?? is usually OK) v. Persistent nausea and vomiting vi. Persistent constipation or diarrhea vii. Rash or allergic reaction to medications. Discharge Attestations CLARIFIER OPERATOR HELPER Time Spent in Discharge Care*: greater than 30 min Coding Level of Care Code Acute Code for Chg Fwd
[2024-12-31] MEDS: metformin 500 mg Tablet PO (10:15)
[2024-12-31] MEDS: docusate sodium 100 mg Capsule PO (10:15)
[2024-12-31] MEDS: hydroCHLOROthiazide 25 mg Tablet 12.5 MG PO (10:15)
[2024-12-31 10:28] VITALS: BP 146/65; PULSE 79; RESP 16; TEMP 36.6; O2SAT 98
[2024-12-31 11:15] VITALS: BP 160/76; PULSE 80; RESP 16; TEMP 36.7
[2024-12-31] MEDS: HYDROcodone-acetaminophen 5-325 mg Tablet PO (11:15)
[2024-12-31 11:18] VITALS: BP 159/76; PULSE 80; RESP 16; TEMP 36.7; O2SAT 98
== END 2024-12-31 11:18 | disposition home or self-care (01) ==
LOC: OBGYN 14:27
PROVIDERS: Admitting Provider Obstetrics & Gynecology; PCP Nurse Practitioner Family; Visit Provider Obstetrics & Gynecology
PROC: (CPT 58262; principal; 2024-12-30 12:00)
PROC: (CPT 58720; 2024-12-30 12:00)
PROC: 0JQC0ZZ Repair Pelvic Region Subcutaneous Tissue and Fascia, Open Approach (ICD-10-PCS; CPT 57240; 2024-12-30 12:00)
PROC: (CPT 57288; 2024-12-30 12:00)
DX: N81.4 Uterovaginal prolapse, unspecified (principal); N72 Inflammatory disease of cervix uteri; D25.1 Intramural leiomyoma of uterus; N83.8 Other noninflammatory disorders of ovary, fallopian tube and broad ligament; N83.291 Other ovarian cyst, right side; N39.46 Mixed incontinence; I10 Essential (primary) hypertension; E11.9 Type 2 diabetes mellitus without complications; Z79.899 Other long term (current) drug therapy; Z79.82 Long term (current) use of aspirin; Z88.8 Allergy status to other drugs, medicaments and biological substances; E78.5 Hyperlipidemia, unspecified; F41.8 Other specified anxiety disorders
CPT/HCPCS: 58262; 57240; 57288; 36415; 36416; 51798; 80053; 82962; 85025; 85027; 86850; 86900; 88307; C1713; G0378; J0131; J0690; J1100; J1171; J1200; J1650; J1885; J2405; J2704; J3010; J3490; J7030; J7121; J7512

== ENCOUNTER 2025-01-03 12:48 | Emergency (ER) | payer MEDICARE, OTHER, SELFPAY ==
[2025-01-03 12:55] VITALS: BMI 30.1
--- NOTE | 2025-01-03 12:56 | CT_ITS ---
WS: [id number] CTA HEAD AND NECK TECHNIQUE: Contrast enhanced CTA of the head and neck with coronal and sagittal reformatted images and maximum intensity projection (MIP) images. NASCET criteria utilized. CLINICAL INFORMATION: Neuro defecit COMPARISON: None. DLP: 418.[address] scans at [facility] use at least one of these dose optimization techniques: automated exposure control; mA and/or kV adjustment per patient size (includes targeted exams where dose is matched to clinical indication); or iterative reconstruction. FINDINGS: RIGHT: Mild calcified atheromatous disease RIGHT carotid bulb extending into the ICA with less than 50% stenosis. LEFT: Less than 50% LEFT ICA stenosis. Codominant and patent vertebral arteries bilaterally. Basilar artery is patent. Anterior dominant circulation. Persistent RIGHT LAST INSERTER. Normal vascularity to the LAST INSERTER territory bilaterally. INTRACRANIAL CTA: Both ICAs are patent at the skull base. Mild cavernous carotid calcification. Hypoplastic LEFT A1 segment. Normal vascularity to the BIENVENIDO territory. Normal vascularity to the RIGHT MCA territory. Severe stenosis LEFT proximal M1 segment with a tiny amount of residual flow. Distal LEFT M1 segment and MCA vessels remain patent. Small thyroid nodules. Paranasal sinuses and mastoid air cells are well aerated. Mild spondylitic changes cervical spine CT/CT angio headneck* [id number] IMPRESSION: 1. Severe short segment stenosis LEFT proximal M1 segment with a tiny amount o f residual flow. Distal M1 vessel remains patent. Distal MCA vessels appear pat ent. 2. Normal RIGHT M1 segment. 3. Codominant and patent vertebral arteries with persistent RIGHT LAST INSERTER. N ormal vascularity to the LAST INSERTER territory bilaterally. Anterior dominant circulati on. 4. Less than 50% ICA stenosis bilaterally with mild calcified atheromatous dis ease. Notified Wellington North MD at 01/03/2025 01/03/2025 1:22 PM
--- NOTE | 2025-01-03 12:56 | XR_ITS ---
WS: [id number] Portable AP upright chest, 01/03/2025 Clinical Data: CVA Comparison: Portable chest, 09/11/2020 Findings: No nodules, masses or effusions are seen. The heart is normal. The pulmonary vascularity is not increased. No pneumonia or pneumothorax is seen. The aortic arch and descending thoracic aorta show tortuosity. There is a levoscoliosis of the thoracic spine. XR/XR chest 1V portable [id number] Impression: Atherosclerosis.
--- NOTE | 2025-01-03 12:57 | CT_ITS ---
WS: [id number] CT HEAD TECHNIQUE: Noncontrast CT of the head obtained from the skullbase to the vertex. CLINICAL INFORMATION: Symptoms of acute stroke COMPARISON: 2022 DLP: [address] scans at [facility] use at least one of these dose optimization techniques: automated exposure control; mA and/or kV adjustment per patient size (includes targeted exams where dose is matched to clinical indication); or iterative reconstruction. FINDINGS: No evidence of intracranial hemorrhage or mass effect. Ventricular system and basal cisterns are patent. Mild small vessel changes with mild parenchymal volume loss. No extra-axial fluid collections. No evidence of mass or mass effect. Normal cerrato-white differentiation. Paranasal sinuses and mastoid air cells are well aerated. .Normal visualized soft tissues. CT/CT head thrombolytic [id number] IMPRESSION: 1. No evidence of intracranial hemorrhage or mass effect. 2. No acute intracranial findings. Notified Wellington North MD at 01/03/2025 1:16 PM.
[2025-01-03 13:00] LABS: Glucose Point of Care 190 mg/dL (70-110)
[2025-01-03] MEDS: iohexol 350 mg/mL 500 mL Btl (per mL) IV (13:02)
[2025-01-03 13:05] LABS: Basophils # 0.1 10^3/uL (0.0-0.1); Basophils % 0.4 %; Eosinophils # 0.5 10^3/uL (0.0-0.8); Eosinophils % 3.5 %; Hematocrit 38.2 % (36-47); Lymphocytes # 2.6 10^3/uL (0.8-4.8); Mean Corpuscular HGB Conc 30.6 g/dL (30-55); Mean Corpuscular Hemoglobin 29.3 pg (27-33); Mean Corpuscular Volume 95.7 fl (85-98); Mean Platelet Volume 10.3 fL (7.4-10.4); Monocytes # 0.7 10^3/uL (0.2-0.9); Monocytes % 4.9 %; Neutrophils # 10.44 10^3/uL (1.8-7.7); Neutrophils % 71.8 %; Nucleated Red Blood Cells % 0 %; Platelet Count 403 10^3/cmm (157-399); Red Blood Count 3.99 10^6/uL (3.85-5.65); Red Cell Distribution Width 13.3 % (12.1-15.1); White Blood Count 14.53 10^3/uL (3.29-11.43)
--- NOTE | 2025-01-03 13:09 | ECG_ITS ---
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 Measurements Intervals [place] Rate: 93 P: 79 ID: [id number] QRS: 79 QRSD: 86 T: 69 QT: 371 QTc: 463 Interpretive Statements SINUS RHYTHM No previous ECG available for comparison Electronically Signed On 01-04-2025 07:43:07 BLOCKER AND SEWER by Santino Llanos M.D. [id number]
[2025-01-03 13:12] VITALS: BP 154/91; PULSE 96; O2SAT 94
[2025-01-03 13:13] LABS: INR 0.89 (0.8-1.2)
[2025-01-03 13:14] LABS: Partial Thromboplastin Time 26.2 SECONDS (23.9-36.7)
[2025-01-03 13:18] LABS: Alanine Aminotransferase 12 U/L (0-33); Albumin Level 3.7 g/dL (3.5-5.2); Alkaline Phosphatase 68 U/L (35-105); Aspartate Amino Transferase 8 U/L (0-32); Blood Urea Nitrogen 28 mg/dL (8-23); Calcium 9.4 mg/dL (8.5-10.5); Carbon Dioxide 25 mmol/L (22-29); Chloride 97 mmol/L (98-107); Creatinine Clr Calc Pharmacy 58.0072; Globulin 3.2 g/dL (1.3-4.6); Glomerular Filtration Rate 62.1 mL/min (90-130); Glucose 195 mg/dL (65-115); Osmolality Calculated 291 mOsm/kg (285-295); Sodium 135 mmol/L (136-145); Total Bilirubin 0.3 mg/dL (0.15-1.2); Total Protein 6.9 g/dL (6.6-8.7)
[2025-01-03 13:30] VITALS: BP 162/97; PULSE 94; O2SAT 94
[2025-01-03] MEDS: tenecteplase 50mg Kit (STROKE) 19 MG IVP (13:43)
--- NOTE | 2025-01-03 13:47 | PM.HP ---
Providers/Chief Complaint Primary Care Provider: YA Lamb Chief Complaint: stroke like symptoms History of Present Illness Kamila Mak is a 69 year old female Medications/Allergies Home Medications ?Medication ?Instructions ?Recorded ?Confirmed ?Last Taken ?Type ascorbate calcium (vitamin C) 500 500 mg PO DAILY 03/16/23 12/27/24 12/29/24 History mg tablet cholecalciferol (vitamin D3) 25 25 mcg PO DAILY 03/16/23 12/27/24 12/29/24 History mcg (1,000 unit) capsule glucosamine HCl 500 mg tablet 500 mg PO DAILY 03/16/23 12/27/24 12/29/24 History losartan 50 mg-hydrochlorothiazide 1 tab PO DAILY 03/16/23 12/27/24 12/29/24 History 12.5 mg tablet lovastatin 10 mg tablet 10 mg PO DAILY 03/16/23 12/27/24 12/29/24 History metformin 500 mg tablet 500 mg PO BID 03/16/23 12/27/24 12/29/24 History zinc sulfate 25 mg zinc (110 mg) 25 mg PO DAILY 03/16/23 12/27/24 12/29/24 History tablet sertraline 25 mg tablet 25 mg PO DAILY 07/11/23 12/27/24 12/26/24 History doxycycline hyclate 100 mg tablet 100 mg PO BID 7 days #14 tabs 12/25/24 12/27/24 12/29/24 Rx fluticasone propionate 50 1 spray intranasal DAILY PRN nasal 12/25/24 12/27/24 12/29/24 Rx mcg/actuation nasal congestion #16 grams spray,suspension (Flonase Allergy Relief) prednisone 20 mg tablet 20 mg PO BID 5 days #10 tabs 12/25/24 12/27/24 12/29/24 Rx promethazine-DM 6.25 mg-15 mg/5 mL 5 ml PO Q6H PRN cough #473 mL 12/27/24 12/27/24 12/29/24 Rx oral syrup aspirin 81 mg tablet 81 mg PO DAILY 12/30/24 12/30/24 12/23/24 History acetaminophen 325 mg capsule 325 mg PO Q4H PRN fever or pain 12/31/24 Unknown Rx #60 caps docusate sodium 100 mg capsule 100 mg PO BID #60 caps 12/31/24 Unknown Rx (Colace) ferrous sulfate 325 mg (65 mg 325 mg PO BID #60 tabs 12/31/24 Unknown Rx iron) tablet (Iron (ferrous sulfate)) hydrocodone 5 mg-acetaminophen 325 1 tab PO Q4H PRN pain #20 tabs 12/31/24 Unknown Rx mg tablet ibuprofen 800 mg tablet 800 mg PO TID PRN pain #60 tabs 12/31/24 Unknown Rx Allergies Allergy/AdvReac Type Severity Reaction Status Date / Time ciprofloxacin (From Cipro) Allergy Severe ALGY-Anaphy Verified 12/27/24 12:29 laxis PFSH Acute PFSH: Medical History Depression with anxiety Dyslipidemia DM type 2 (diabetes mellitus, type 2) Hypertension Surgical History History of ankle surgery right ankle surgery in [facility] History of cataract surgery Family History Father Diabetes Mother Heart disease Hypertension Other CAD (coronary artery disease) Lung disease Denies family history of Clotting disorder Anesthesia complication Bleeding disorder Social History Smoking and tobacco/nicotine status: never used tobacco/nicotine Alcohol intake: never Marital status: Vitals/I&O/Wt Weight last 48 hrs Weight 77.111 kg Data 01/03/25 12:56 01/03/25 12:56 A&P PDMP PDMP Reviewed: Not Reviewed Coding Level of Care Code Acute Code for Mirna Davidson
--- NOTE | 2025-01-03 13:51 | PM.SAN ---
Stroke Alert Activation ED Arrival Date: 01/03/25 ED Arrival Time: 12:55 Last Known Normal/at Baseline: < 1 hour ago Other Last Known Well Infomation: Stroke alert was called on this 69-year-old woman who had a hysterectomy of couple of days ago by Dr. Turner. I was concerned because the patient reportedly had trouble expressing herself and was only a couple of days postop. When I did not hear back from the emergency room physician I called back and talked with Dr. North, who had ordered CT and CTA. I reviewed the CAT scan, which was unremarkable, and proceeded directly to the emergency department and examined the patient. I found that she had mixed receptive and expressive aphasia, significant apraxia in the right hand and finger agnosia. She had slight drift of the extended right arm as well. I talked with the family about TNK including risks and benefit. I asked Dr. North to rapidly order TNK and she received the bolus at 1337. I proceeded to review the CT angiogram with Dr. Aquino and discovered that she probably has a thrombus or a partially cannaized embolus in the left middle cerebral artery referable to her symptoms. After reviewing those images and talking with Dr. Aquino I called Dr. North and reported to him that the patient would need to be transferred for embolectomy. At the same time he was trying to reach me to tell me that the patient had deteriorated and become globally aphasic. By the time I got back to the emergency department (with an image of her CTA and hand) she was sitting up asking for something to drink. I did a bedside swallowing evaluation and gave her a couple of sips of water. Her exam was unchanged as she still had multiple paraphasic errors, trouble repeating a complex phrase, finger agnosia, drift with pronation of the right upper extremity. I went over the CTA results with the patient, her and daughter and recommended transfer to a thrombectomy capable center. They have agreed to go to [facility] and Dr. North has arranged for transfer by ground ambulance as [facility]VI is not flying today in the wind. Stroke Alert Activated by: I think it was triage Stroke Alert Activation Date: 01/03/25 Stroke Alert Activation Time: 12:52 Stroke MD @ Bedside Time: 12:52 NIH Stroke Scale Time: 13:25 NIH stroke score NIHSS: Level Of Consciousness - 1a: 1 Level Of Consciousness Questions - 1b: One Correct Level Of Consciousness Commands - 1c: One Correct Best Gaze - 2: Normal Visual Mccullough - 3: No Visual Loss Facial Palsy - 4: Partial Paralysis Motor Arm Right - 5: Drift Motor Arm Left - 5: No Drift Motor Leg Right - 6: No Drift Motor Leg Left - 6: No Drift Limb Ataxia - 7: Absent Sensory - 8: Normal Best Language - 9: Mild/Moderate Aphasia Dysarthia - 10: Normal Extinction And Inattention - 11: 0 Score: Total Score: 7 Stroke Alert Data/Treatment Time to CT of Head: 12:56 CT Results Time: 13:16 CT Impression: 1. No evidence of intracranial hemorrhage or mass effect. 2. No acute intracranial findings. Notified Wellington North MD at 01/03/2025 1:16 PM. Signed By: Wilmer Aquino MD Signed Date/Time: 01/03/25 Stroke Risk Factors: hypertension, diabetes mellitus, smoker (She never smoked) and depression tPA Started Time: tPA Started - Time: 13:37 tPA Admin Prior to Arrival: No Patient & Family Educated on: Cause of Stroke, Risk Factors (She held aspirin for the past week because of her hysterectomy), Treament Plan, Prognosis, Stroke Education Booklet and tPA Risks/Benefits Other Patient & Family Education: We went over the stroke book. I gave the patient a picture of the CTA and explained thrombectomy and TNK risks and benefits. Other Information: She was transferred by ground ambulance to [facility] Critical Care Time Critical Care Time: 30 - 74 mins A&P Assessment and plan (1) Left acute arterial ischemic stroke, MCA (middle cerebral artery): Acute left middle cerebral artery stroke. She has what appears to be a somewhat long embolus that is partially cannulized in the first division of the middle cerebral artery. She has waxing and waning of symptoms and needs embolectomy. She received TNK an hour and 40 minutes after onset of symptoms. She received TNK 47 minutes after arrival here. There was a delay imposed by performing CTA. PDMP PDMP Reviewed: Not Reviewed Coding Level of Care Code Acute Code for [facility] Fwd Diagnoses Left acute arterial ischemic stroke, MCA (middle cerebral artery) I63.512
--- NOTE | 2025-01-03 13:52 | W.ED.NEUROSD ---
HPI - Neuro Symptoms/Deficit General: Chief Complaint: Neuro Symptoms/Deficit Stated Complaint: stroke like symptoms Time Seen by Provider: 01/03/25 12:55 History of Present Illness: This patient is a 69-year-old white female who presents to the emergency department with stroke symptoms. Patient had developed sudden onset of expressive aphasia and facial droop approximately 30 minutes prior to arrival. Her last known well was 12:05 PM today. She does have a mild frontal headache. Patient did undergo a hysterectomy on Monday. Associated symptoms: Reports headache(s) Related Data Home Medications ?Medication ?Instructions ?Recorded ?Confirmed ascorbate calcium (vitamin C) 500 500 mg PO DAILY 03/16/23 01/03/25 mg tablet cholecalciferol (vitamin D3) 25 25 mcg PO DAILY 03/16/23 01/03/25 mcg (1,000 unit) capsule glucosamine HCl 500 mg tablet 500 mg PO DAILY 03/16/23 12/27/24 losartan 50 mg-hydrochlorothiazide 1 tab PO DAILY 03/16/23 12/27/24 12.5 mg tablet lovastatin 10 mg tablet 10 mg PO DAILY 03/16/23 12/27/24 metformin 500 mg tablet 500 mg PO BID 03/16/23 12/27/24 zinc sulfate 25 mg zinc (110 mg) 25 mg PO DAILY 03/16/23 12/27/24 tablet sertraline 25 mg tablet 25 mg PO DAILY 07/11/23 12/27/24 aspirin 81 mg tablet,delayed 81 mg PO DAILY 01/03/25 01/03/25 release Previous Rx's ?Medication ?Instructions ?Recorded doxycycline hyclate 100 mg tablet 100 mg PO BID 7 days #14 tabs 12/25/24 fluticasone propionate 50 1 spray intranasal DAILY PRN nasal 12/25/24 mcg/actuation nasal congestion #16 grams spray,suspension (Flonase Allergy Relief) prednisone 20 mg tablet 20 mg PO BID 5 days #10 tabs 12/25/24 promethazine-DM 6.25 mg-15 mg/5 mL 5 ml PO Q6H PRN cough #473 mL 12/27/24 oral syrup acetaminophen 325 mg capsule 325 mg PO Q4H PRN fever or pain 12/31/24 #60 caps docusate sodium 100 mg capsule 100 mg PO BID #60 caps 12/31/24 (Colace) ferrous sulfate 325 mg (65 mg 325 mg PO BID #60 tabs 12/31/24 iron) tablet (Iron (ferrous sulfate)) hydrocodone 5 mg-acetaminophen 325 1 tab PO Q4H PRN pain #20 tabs 12/31/24 mg tablet ibuprofen 800 mg tablet 800 mg PO TID PRN pain #60 tabs 12/31/24 Allergies Allergy/AdvReac Type Severity Reaction Status Date / Time ciprofloxacin (From Cipro) Allergy Severe ALGY-Anaphy Verified 12/27/24 12:29 laxis Review of Systems General: Reports: 10 or more systems reviewed and unremarkable except in HPI and below Neuro: Reports: headache(s) and Slurred speech present PFSH ED PFSH: Medical History Depression with anxiety Dyslipidemia DM type 2 (diabetes mellitus, type 2) Hypertension Surgical History History of ankle surgery right ankle surgery in [facility] History of cataract surgery Family History Father Diabetes Mother Heart disease Hypertension Other CAD (coronary artery disease) Lung disease Denies family history of Clotting disorder Anesthesia complication Bleeding disorder Social History Smoking and tobacco/nicotine status: never used tobacco/nicotine Alcohol intake: never Marital status: NIH stroke score NIHSS: Level Of Consciousness - 1a: 0 Level Of Consciousness Questions - 1b: Both Correct Level Of Consciousness Commands - 1c: Both Correct Best Gaze - 2: Normal Visual Mccullough - 3: No Visual Loss Facial Palsy - 4: Minor Paralysis Motor Arm Right - 5: No Drift Motor Arm Left - 5: No Drift Motor Leg Right - 6: No Drift Motor Leg Left - 6: No Drift Limb Ataxia - 7: Present In One Limb Sensory - 8: Normal Best Language - 9: Mild/Moderate Aphasia Dysarthia - 10: Mild/Moderate Dysarthia Extinction And Inattention - 11: 0 Score: Total Score: 4 Physical Exam Const: COMMON NORMALS: no acute distress, patient oriented x3 and no limitations GENERAL APPEARANCE: cooperative and comfortable HENMT: COMMON NORMALS: normocephalic, atraumatic, Normal nasal mucous membranes and turbinates present, moist oral mucous membranes and oropharynx normal HEAD & SCALP: normal to inspection, normocephalic and atraumatic FACE & SINUS: normal facial exam NOSE: Normal nasal mucous membranes and turbinates present Eye: COMMON NORMALS: Equal, round and reactive pupils present, EOMs intact bilaterally and conjunctivae normal GENERAL EYE: appearance normal, both eyes and all related structures CONJUNCTIVA: Yes conjunctivae normal PUPIL: Yes Equal, round and reactive pupils present Neck/C-Spine: COMMON NORMALS: supple and no JVD Chest: COMMONS NORMALS: normal inspection of the chest Resp: COMMON NORMALS: normal respiratory effort and clear to auscultation bilaterally AUSCULTATION: clear to auscultation bilaterally Cardio: COMMON NORMALS: no JVD, regular rate, regular rhythm, No gallops present (Cardio), No murmurs present (Cardio) and No rub (Cardio) RATE: regular rate RHYTHM: regular rhythm GI: COMMON NORMALS: Normal to inspection, nondistended, normoactive bowel sounds present, Soft to palpation and non-tender AUSCULTATION: Yes normoactive bowel sounds PALPATION: Yes Soft to palpation : COMMON NORMALS: Yes no CVA tenderness BLADDER/KIDNEY EXAM: Yes no CVA tenderness Back/Pelvis: COMMON NORMALS: no CVA tenderness and thoracic and lumbar spine normal to inspection Extremity: COMMON NORMALS: normal to inspection Neuro: COMMON NORMALS: patient oriented x3 OTHER: See NIH Psych: COMMON NORMALS: mental status grossly normal, Normal thought process present and cooperative THOUGHT PROCESS: Normal thought process present Skin: COMMON NORMALS: no rashes or lesions noted, turgor normal and no jaundice GENERAL SKIN EXAM: no rashes or lesions noted and turgor normal MDM - Neuro Symptoms/Deficit Medical Decision Making EKG revealed sinus rhythm with no ST segment abnormalities. Chest x-ray is normal. CT head was read by the radiologist as normal. CTA of the head and neck was read by the radiologist. There is a tight proximal M1. There is flow distal to it. And blood sugar was 190. CBC revealed a white blood cell count of 14.5. CMP revealed a BUN of [address] Lainez, neurologist was consulted at 1:22. Since the patient recently had a hysterectomy she did discuss the case with the project engineering director. The project engineering director was okay with administering the TNK so Dr. Lainez does recommend TN K. That was administered in the emergency department. Dr. Lainez did review the CTA and she does feel that this is an embolism and she may need intervention. She does recommend transferring to a facility with interventional neurology such as [facility] or [place]. We are currently contacting [place]. I did speak with Dr. Douglass, neurologist at [facility]. He did accept the patient for transfer. I also spoke to the ER physician Dr. Mckeon he is well excepted the patient. Patient will be transferred as soon as we have transportation. Dr. Douglass did ask if we can do a perfusion scan but found out we do not have the ability to do perfusion scans here. Lab Data 01/03/25 12:56 01/03/25 12:56 Radiology Impressions Chest X-Ray 01/03/25 12:56 Impression: Atherosclerosis. Head/Neck CTA 01/03/25 12:56 IMPRESSION: 1. Severe short segment stenosis LEFT proximal M1 segment with a tiny amount of residual flow. Distal M1 vessel remains patent. Distal MCA vessels appear patent. 2. Normal RIGHT M1 segment. 3. Codominant and patent vertebral arteries with persistent RIGHT FAUCETS ASSEMBLER. Normal vascularity to the FAUCETS ASSEMBLER territory bilaterally. Anterior dominant circulation. 4. Less than 50% ICA stenosis bilaterally with mild calcified atheromatous disease. Notified Wellington North MD at 01/03/2025 01/03/2025 1:[address] 01/03/25 12:57 IMPRESSION: 1. No evidence of intracranial hemorrhage or mass effect. 2. No acute intracranial findings. Notified Wellington North MD at 01/03/2025 1:16 PM. Laboratory Results WBC 14.53 10^3/uL (3.29-11.43) H 01/03/25 12:56 RBC 3.99 10^6/uL (3.85-5.65) 01/03/25 12:56 Hgb 11.70 g/dL (11.27-16.99) 01/03/25 12:56 Hct 38.2 % (36-47) 01/03/25 12:56 MCV 95.7 fl (85-98) 01/03/25 12:56 MCH 29.3 pg (27-33) 01/03/25 12:56 MCHC 30.6 g/dL (30-55) 01/03/25 12:56 RDW 13.3 % (12.1-15.1) 01/03/25 12:56 Plt Count 403 10^3/cmm (157-399) H 01/03/25 12:56 MPV 10.3 fL (7.4-10.4) 01/03/25 12:56 Neut % (Auto) 71.8 % 01/03/25 12:56 Lymph % (Auto) 18.0 % 01/03/25 12:56 [place] % (Auto) 4.9 % 01/03/25 12:56 Eos % (Auto) 3.5 % 01/03/25 12:56 Baso % (Auto) 0.4 % 01/03/25 12:56 Neut # (Auto) 10.44 10^3/uL (1.8-7.7) H 01/03/25 12:56 Lymph # (Auto) 2.6 10^3/uL (0.8-4.8) 01/03/25 12:56 [place] # (Auto) 0.7 10^3/uL (0.2-0.9) 01/03/25 12:56 Eos # (Auto) 0.5 10^3/uL (0.0-0.8) 01/03/25 12:56 Baso # (Auto) 0.1 10^3/uL (0.0-0.1) 01/03/25 12:56 Nucleated RBC % (auto) 0 % 01/03/25 12:56 Nucleated RBCs # 0.0 /100WBC 01/03/25 12:56 PT 12.70 SECONDS (12.1-14.9) 01/03/25 12:56 INR 0.89 (0.8-1.2) 01/03/25 12:56 APTT 26.2 SECONDS (23.9-36.7) 01/03/25 12:56 Sodium 135 mmol/L (136-145) L 01/03/25 12:56 Potassium 4.0 mmol/L (3.5-5.1) 01/03/25 12:56 Chloride 97 mmol/L (98-107) L 01/03/25 12:56 Carbon Dioxide 25 mmol/L (22-29) 01/03/25 12:56 Anion Gap 17.0 (5-19) 01/03/25 12:56 BUN 28 mg/dL (8-23) H 01/03/25 12:56 Creatinine 0.9 mg/dL (0.5-0.9) 01/03/25 12:56 GFR Calculation 62.1 mL/min (90-130) L 01/03/25 12:56 Glucose 195 mg/dL (65-115) H 01/03/25 12:56 POC Glucose 190 mg/dL (70-110) H 01/03/25 12:55 Calculated Osmolality 291 mOsm/kg (285-295) 01/03/25 12:56 Calcium 9.4 mg/dL (8.5-10.5) 01/03/25 12:56 Total Bilirubin 0.3 mg/dL (0.15-1.2) 01/03/25 12:56 AST 8 U/L (0-32) 01/03/25 12:56 ALT 12 U/L (0-33) 01/03/25 12:56 Alkaline Phosphatase 68 U/L (35-105) 01/03/25 12:56 Total Protein 6.9 g/dL (6.6-8.7) 01/03/25 12:56 Albumin 3.7 g/dL (3.5-5.2) 01/03/25 12:56 Globulin 3.2 g/dL (1.3-4.6) 01/03/25 12:56 All radiology interpretation(s) finalized by discharge Discharge Plan Discharge Patient Disposition: Admitted As Inpatient Clinical Impression: Cerebrovascular accident Qualifiers: CVA mechanism: unspecified Qualified Code(s): I63.9 - Cerebral infarction, unspecified Condition: Stable Coding Level of Care Code ED Flag Signaler for Mirna Davidson
[2025-01-03 14:00] VITALS: BP 157/81; PULSE 94; RESP 15; O2SAT 95
[2025-01-03 14:30] VITALS: BP 153/87; PULSE 102; RESP 24; O2SAT 94
[2025-01-03] MEDS: sodium chloride 0.9% 1,000 ML 100 ML IV (14:35)
[2025-01-03 14:49] LABS: Bilirubin Urine Negative (Negative); Blood Urine 1+ (Negative); Glucose Urine UA Negative (Normal); Ketones Urine Negative (Negative); Leukocyte Esterase Urine 1+ (Negative); Nitrate Urine Negative (Negative); Protein Urine Negative (Negative); Urine Appearance Clear (CLEAR); Urine Color Yellow (Yellow); Urobilinogen Urine 0.2 mg/dL (Negative); pH Urine 6.5 (5-7)
[2025-01-03 14:58] LABS: Specific Gravity, Urine 1.042 (1.005-1.030)
[2025-01-03 15:00] VITALS: BP 153/89; PULSE 100; RESP 22; O2SAT 96
[2025-01-03 15:02] LABS: Add Urine Microscopic? YES; Bacteria Urine 1+ /hpf; RBC Urine 25-40 /hpf (0-2); UA Manual Slide Review YES; WBC Urine 0-4 /hpf (0-5)
[2025-01-03 15:03] LABS: Add Urine Culture? Yes
[2025-01-03 15:31] LABS: Amphetamines Screen Urine Negative (Negative); Barbiturates Screen Urine Negative (Negative); Benzodiazepines Screen Urine Negative (Negative); Cocaine Screen Urine Negative (Negative); Opiate Screen Urine Positive (Negative); PCP Screen Urine Negative (Negative); THC Screen Urine Negative (Negative)
== END 2025-01-03 15:00 | disposition admitted as inpatient to this hospital (09) ==
PROVIDERS: Emergency Provider Emergency Medicine; PCP Nurse Practitioner Family
DX: I63.9 Cerebral infarction, unspecified (principal); E11.9 Type 2 diabetes mellitus without complications; I10 Essential (primary) hypertension; E78.5 Hyperlipidemia, unspecified
CPT/HCPCS: 36416; 70450; 70496; 70498; 71045; 80053; 80306; 81001; 82962; 85025; 85610; 85730; 87077; 87086; 87186; 93005; 96374; 99285; J3101; J7030

== ENCOUNTER 2025-01-21 11:28 | Outpatient (RCR) | payer MEDICARE, OTHER, SELFPAY | END 2025-02-03 23:59 | disposition home or self-care (01) | LOC: SPT 11:28 | PROVIDERS: Visit Provider Family Medicine | DX: I69.351 Hemiplegia and hemiparesis following cerebral infarction affecting right dominant side (principal); I69.392 Facial weakness following cerebral infarction | CPT/HCPCS: 97110; 97112; 97161 ==

== ENCOUNTER 2025-01-21 11:33 | Outpatient (RCR) | payer MEDICARE, OTHER, SELFPAY | END 2025-02-03 23:59 | disposition home or self-care (01) | LOC: SST 11:33 | PROVIDERS: Visit Provider Family Medicine | DX: I69.320 Aphasia following cerebral infarction (principal) | CPT/HCPCS: 92507; 92523; 92610 ==

== ENCOUNTER 2025-02-04 05:00 | Outpatient (RCR) | payer MEDICARE, OTHER, SELFPAY | END 2025-03-05 23:59 | disposition home or self-care (01) | LOC: SST 05:00 | PROVIDERS: Visit Provider Family Medicine | DX: I69.320 Aphasia following cerebral infarction (principal) | CPT/HCPCS: 92507 ==

== ENCOUNTER 2025-02-04 05:00 | Outpatient (RCR) | payer MEDICARE, OTHER, SELFPAY | END 2025-02-25 10:01 | disposition home or self-care (01) | LOC: SPT 05:00 | PROVIDERS: Visit Provider Family Medicine | DX: I69.351 Hemiplegia and hemiparesis following cerebral infarction affecting right dominant side (principal) | CPT/HCPCS: 97110; 97112 ==

== ENCOUNTER 2025-03-06 05:00 | Outpatient (RCR) | payer MEDICARE, OTHER, SELFPAY | END 2025-04-05 23:59 | disposition home or self-care (01) | LOC: SST 05:00 | PROVIDERS: Visit Provider Family Medicine | DX: I69.320 Aphasia following cerebral infarction (principal) | CPT/HCPCS: 92507 ==

== ENCOUNTER → 2025-03-19 13:36 | Outpatient (BNVA) | payer MEDICARE, OTHER, SELFPAY | PROVIDERS: Visit Provider Specialist | DX: I63.512 Cerebral infarction due to unspecified occlusion or stenosis of left middle cerebral artery (principal); I15.2 Hypertension secondary to endocrine disorders; I63.9 Cerebral infarction, unspecified; G47.10 Hypersomnia, unspecified; I49.9 Cardiac arrhythmia, unspecified | CPT/HCPCS: 99205 ==

== ENCOUNTER 2025-04-06 05:00 | Outpatient (RCR) | payer MEDICARE, OTHER, SELFPAY | END 2025-05-05 23:59 | disposition home or self-care (01) | LOC: SST 05:00 | PROVIDERS: Visit Provider Family Medicine | DX: I69.320 Aphasia following cerebral infarction (principal) | CPT/HCPCS: 92507 ==

== ENCOUNTER 2025-04-29 07:31 | Outpatient (CLI) | payer MEDICARE, OTHER, SELFPAY ==
--- NOTE | 2025-04-29 07:45 | USCV_ITS ---
Aubree Kamila Age: 69 Gender: F : 1955 Exam Date: 04/29/2025 07:49 Ordering Phys: Lara Lainez MD Technologist: Exam Location: [facility] [place] Indication: CVA BP: 136 / 80 HR: Rhythm: Sinus Technical Quality: Adequate MEASUREMENTS (Male / Female) Normal Values 2D ECHO LV Diastolic Diameter PLAX 3.4 cm 4.2 - 5.9 / 3.9 - 5.3 cm IVS Diastolic Thickness 1.3 cm 0.6 - 1.0 / 0.6 - 0.9 cm IVS Systolic Thickness 1.5 cm LVPW Diastolic Thickness 1.1 cm 0.6 - 1.0 / 0.6 - 0.9 cm LVPW Systolic Thickness 1.4 cm LVOT Diameter 1.8 cm LV Ejection Fraction 2D Teich 60.7 % LV Ejection Fraction MOD 4C 64.5 % LV Ejection Fraction MOD 2C 66.5 % LV Ejection Fraction 2C AL 65.3 % LA Diameter 3.6 cm RA Systolic Volume 4C AL 23.6 ml RA Systolic Volume 4C MOD 22.8 ml Aorta at Sinotubular Diameter 3.2 cm M-MODE LA Ao Ratio MM 1.3 AV Cusp Separation MM 1.5 cm FINDINGS Left Ventricle Right Ventricle Right Atrium Left Atrium Mitral Valve Aortic Valve Tricuspid Valve Pulmonic Valve Pericardium Aorta IVC CONCLUSIONS Limited echocardiogram performed to rule out intracardiac shunting. LV systolic function is normal with EF of 55 to 60%. No regional wall motion abnormalities are seen. No evidence of intracardiac shunting bubble study. Santino Llanos MD (Electronically Signed) Final Date: 16 May 2025 09:13 S
== END 2025-04-29 07:32 | disposition home or self-care (01) ==
PROVIDERS: PCP Nurse Practitioner Family; Visit Provider Specialist
DX: I63.512 Cerebral infarction due to unspecified occlusion or stenosis of left middle cerebral artery (principal); I15.2 Hypertension secondary to endocrine disorders
CPT/HCPCS: C8924

== ENCOUNTER 2025-04-30 12:47 | Outpatient (CLI) | payer MEDICARE, OTHER, SELFPAY | END 2025-04-30 12:48 | disposition home or self-care (01) | LOC: SLEEP 12:51 | PROVIDERS: PCP Nurse Practitioner Family; Visit Provider Specialist | DX: G47.33 Obstructive sleep apnea (adult) (pediatric) (principal); G47.36 Sleep related hypoventilation in conditions classified elsewhere | CPT/HCPCS: G0399 ==

== ENCOUNTER 2025-05-06 05:00 | Outpatient (RCR) | payer MEDICARE, OTHER, SELFPAY | END 2025-06-05 23:59 | disposition home or self-care (01) | LOC: SST 05:00 | PROVIDERS: PCP Nurse Practitioner Family; Visit Provider Family Medicine | DX: I69.320 Aphasia following cerebral infarction (principal) | CPT/HCPCS: 92507 ==

== ENCOUNTER → 2025-06-25 13:06 | Outpatient (BNVA) | payer MEDICARE, OTHER, SELFPAY | PROVIDERS: PCP Nurse Practitioner Family; Visit Provider Specialist | DX: I63.512 Cerebral infarction due to unspecified occlusion or stenosis of left middle cerebral artery (principal); I15.2 Hypertension secondary to endocrine disorders; I63.9 Cerebral infarction, unspecified; I20.0 Unstable angina; G47.33 Obstructive sleep apnea (adult) (pediatric); G47.10 Hypersomnia, unspecified; I49.9 Cardiac arrhythmia, unspecified | CPT/HCPCS: 99215 ==

== ENCOUNTER 2025-07-02 08:50 | Outpatient (CLI) | payer MEDICARE, OTHER, SELFPAY ==
[2025-07-02 08:58] VITALS: BMI 29.2
--- NOTE | 2025-07-02 08:58 | ECG_ITS ---
[employer] [facility] Test Date: 2025-07-02 Pat Name: Kamila Mak Department: Room: Gender: Female Regulatory Affairs Spec: : 1955 Requested By: Lara Lainez Order Number: [id number] Abigail MD: Jose Roberto Spain M.D. Interpretive Statements Procedure: A total of 0.4 mg of Lexiscan was infused over 20 seconds. The stress phase was continued for a total of 5 minutes. Sestamibi was injected 20 seconds after the Lexiscan infusion. Vital signs and ECG findings: Baseline EKG???normal sinus rhythm, heart rate 79, minimal Stress EKG??? ST depression no ST-T wave changes from baseline At baseline, blood pressure 136/71 with heart rate 79 bpm During stress, the lowest blood pressure was 125/54 with heart rate of 99 bpm During recovery the patient's blood pressure was 138/57 with a heart rate of 90 bpm Conclusion: 1. Normal EKG response to Lexiscan infusion 2. No Lexiscan induced chest pain or cardiac arrhythmia. 3. Normal blood pressure and heart rate response. 4. Nuclear myocardial perfusion scan pending; see separate report. Electronically Signed On 07-03-2025 09:13:13 CDT by Jose Roberto Spain M.D. [email or web address]
--- NOTE | 2025-07-02 08:59 | NMCV_ITS ---
NM tanisha perf SPECT r/s* [id number] Kamila Mak Age: 70 Gender: F : 1955 Exam Date: 07/02/2025 09:51 Ordering Phys: Lara Lainez MD Technologist: EVELYN Rodas Exam Location: [facility] Indications: cp STRESS TEST Please see separate stress test report in [facility] for full findings IMAGE PROTOCOL Rest/Stress 1 Lexiscan Day Radiopharmaceutical Dose (mCi) Administration Site Administered by Rest: Tc-99m 10.4 IV Lynnette Pinto, ALODIZE MACHINE OPERATOR Sestamibi Stress:Tc-99m 33 IV Lynnette Chavarriagle, ALODIZE MACHINE OPERATOR Sestamibi Rest: 02-Jul-2025 60 Discovery 630 Stress: 02-Jul-2025 30 Discovery 630 0.4mg Lexiscan. Supine position only as patient was unable to lay prone. Patient had alot of bowel uptake that never cleared for imaging. SPECT RESULTS Technical Quality: Good Raw Data Analysis: Normal Image Corrections: No attenuation or motion correction applied Summed Stress Score: 0 Summed Rest Score: 0 Summed Difference Score: 0 PERFUSION FINDINGS SPECT images demonstrate homogeneous tracer distribution throughout the myocardium. FUNCTIONAL RESULTS (calculated via Gated SPECT) Stress Image LV EF (%): 68 Stress EDV (mL):77 TID: 1.07 Stress ESV (mL):25 FUNCTIONAL FINDINGS: There is normal left ventricular systolic function. IMPRESSIONS Myocardial perfusion imaging is normal. Jose Roberto Spain MD, FACC (Electronically Signed) Final Date: 02 July 2025 12:49 S
[2025-07-02 10:38] VITALS: BP 132/64; PULSE 66
== END 2025-07-02 08:51 | disposition home or self-care (01) ==
LOC: CDL 08:52
PROVIDERS: PCP Nurse Practitioner Family; Visit Provider Specialist
DX: I20.0 Unstable angina (principal)
CPT/HCPCS: 36415; 78452; 93017; 96374; A9500; J2785

== ENCOUNTER 2025-08-04 19:56 | Outpatient (CLI) | payer MEDICARE, OTHER, SELFPAY | END 2025-08-04 19:57 | disposition home or self-care (01) | LOC: SLEEP 19:59 | PROVIDERS: PCP Nurse Practitioner Family; Referring Provider Specialist; Visit Provider Internal Medicine Pulmonary Disease | DX: G47.30 Sleep apnea, unspecified (principal); I15.2 Hypertension secondary to endocrine disorders | CPT/HCPCS: 95811 ==